=== PATIENT | male | born 1990 | race Caucasian/White ===

== ENCOUNTER 2017-08-01 07:14 | Inpatient (IN) | payer OTHER ==
[2017-08-01 07:32] VITALS: BMI 20.7
--- NOTE | 2017-08-01 07:51 | PDOC ---
Attending Attestation - Resident Resident Name: PerezTc baker - ED Attending Attestation I have performed the following: I have examined & evaluated the patient, The case was reviewed & discussed with the resident, I agree w/resident's findings & plan, Exceptions are as noted - HPI HPI: 08/01/17 08:11 26y M hx of HTN (recently diagnosed) sent to ED for evaluation of ARF. The patient got some lab work as an outpatient and was noted to have a Cr of 3.8, was referred to renal who told the pt to come to the ED. The pt notes approx 1 month of L flank pain. denies any fever/chills, sob, bates, leg swelling, hemoptysis. Nathanlhy notes that maternal grandmother has a 'shrinking kidney', no other family hx of kidney diesease. pt denies taking any other supplements/med beside his htn med. - Physicial Exam PE: 08/01/17 08:21 GENERAL: The patient is awake, alert, and fully oriented, Nontoxic - in no acute distress. HEAD: Normocephalic, atraumatic. EYES: extraocular movements intact, sclera anicteric, conjunctiva clear. ENT: Normal voice, Moist mucous membranes. NECK: Normal range of motion, supple LUNGS: Breath sounds equal, clear to auscultation bilaterally. No wheezes, no rhonchi, no rales. HEART: tachycardic, normal S1 and S2 without murmur, rub or gallop. ABDOMEN: Soft, nontender, normoactive bowel sounds. No guarding, no rebound. Mild Left CVA tenderness EXTREMITIES: Normal range of motion, no edema. NEUROLOGICAL: No facial assymetry, Normal speech, PSYCH: Normal mood, normal affect. SKIN: Warm, Dry, normal turgor - Medical Decision Making 08/01/17 08:21 Will repeat his blood wrok will obtain renal US EKG to screen for hyperkalemia wlil d/w dr. venegas regarding disposition 08/01/17 10:12 The patient's lab work was reviewed the patient's creatinine is 3.3 renal ultrasound reveals atrophic kidneys The case was discussed with Dr. Venegas recommends admitting the the patient for further workup and management of acute renal failure Heart Score/ECG Review - ECG Impressions Comment:: 08/01/17 08:28 Twelve-lead EKG was performed and reviewed by me. There is normal sinus rhythm with a rate of 106 The axis is normal. The intervals are normal. There is normal R wave progression There are no ST or T wave abnormalities. Impression: Sinus tachycardia
[2017-08-01] MEDS ORDERED: LACTATED RINGERS SOLUTION 1,000 ML IV STA (07:52)
--- NOTE | 2017-08-01 08:05 | PDOC ---
History of Present Illness - General Chief Complaint: Pain, Acute Stated Complaint: PCP REFERRAL Time Seen by Provider: 08/01/17 07:36 History Source: Patient Exam Limitations: No Limitations - History of Present Illness Initial Comments: 08/01/17 08:00 Patient is a 26M with history of HTN and syphilis here today complaining of left sided flank pain for one month. He describes the pain as a dull ache, but also describes an incident 2 weeks ago with sudden onset pain two weeks ago that resolved spontaneously. He endorses associated nausea and decreased PO intake. He's presenting to the ED today from silk finisher Dr Frances because his Cr was found to be 3.88. Patient denies fevers, chills, vomiting. Has family history of kidney stones and his mother is on dialysis. Denies pain with urination, endorses increased frequency. Patient states that he was recently diagnosed with syphilis for which he has been getting weekly injections, but he does not know what injections he was getting. Past History - Past Medical History Allergies/Adverse Reactions: Allergies Allergy/AdvReac Type Severity Reaction Status Date / Time No Known Allergies Allergy Verified 08/01/17 07:32 Home Medications: Ambulatory Orders NK [No Known Home Medication] 08/01/17 COPD: No Other medical history: syphyllis 2 weeks ago - Suicide/Smoking/Psychosocial Hx Smoking History: Never smoked Review of Systems - Review of Systems Comments:: 08/01/17 08:03 GENERAL/CONSTITUTIONAL: No fever or chills. No weakness. HEAD, EYES, EARS, NOSE AND THROAT: No change in vision. No sore throat. CARDIOVASCULAR: No chest pain or shortness of breath RESPIRATORY: No cough, wheezing, or hemoptysis. GASTROINTESTINAL: Positive for nausea. Negative for vomiting, diarrhea or constipation. GENITOURINARY: No dysuria. Positive for frequency. MUSCULOSKELETAL: No joint or muscle swelling or pain. No neck or back pain. SKIN: No rash NEUROLOGIC: No headache, vertigo, loss of consciousness, or change in strength/ sensation. HEMATOLOGIC/LYMPHATIC: No anemia, easy bleeding, or history of blood clots. ALLERGIC/IMMUNOLOGIC: No hives or skin allergy. *Physical Exam - Vital Signs Last Vital Signs Temp Pulse Resp BP Pulse Ox 99.1 F 116 H 20 163/92 99 08/01/17 07:29 08/01/17 07:29 08/01/17 07:29 08/01/17 07:29 08/01/17 07:29 - Physical Exam Comments: 08/01/17 08:04 GENERAL: Awake, alert, and fully oriented, in no acute distress HEAD: No signs of trauma, normocephalic, atraumatic EYES: PERRLA, EOMI, sclera anicteric, conjunctiva clear ENT: Auricles normal inspection, hearing grossly normal, nares patent, oropharynx clear without exudates. Moist mucosa NECK: Normal ROM, supple, no lymphadenopathy, JVD, or masses LUNGS: No distress, speaks full sentences, clear to auscultation bilaterally HEART: Regular rate and rhythm, normal S1 and S2, no murmurs, rubs or gallops, peripheral pulses normal and equal bilaterally. ABDOMEN: Soft, nontender, normoactive bowel sounds. No guarding, no rebound. No masses. Positive for left sided CVA tenderness. EXTREMITIES: Normal inspection, Normal range of motion, no edema. No clubbing or cyanosis. NEUROLOGICAL: Cranial nerves II through XII grossly intact. Normal speech, normal gait, no focal sensorimotor deficits SKIN: Warm, Dry, normal turgor, no rashes or lesions noted. ED Treatment Course - LABORATORY CBC & Chemistry Diagram: 08/01/17 08:13 08/01/17 08:13 Medical Decision Making - Medical Decision Making 08/01/17 08:05 Patient is 26M with history of HTN and syphilis here today with left sided flank pain and kidney failure. Vital signs notable for tachycardia. No edema noted in patient. Mild CVA tenderness. Differential diagnosis includes, but is not limited to: pyelonephritis, nephrolithiasis, nephritis, nephropathies. Syphilis increases concern for G/C, HIV. Will evaluate with cbc, cmp, lipase, ua , uc, hiv, gc amp, ultrasound. Will treat with lactated ringers. 08/01/17 08:27 EKG shows sinus tachycardia with rate of 106bpm. Normal axis. No st elevation/ depressions. Normal VA/QRS/QTc intervals. No significant t wave abnormalities. 08/01/17 09:27 Laboratory Tests 08/01/17 08/01/17 08/01/17 08:13 08:13 08:13 WBC 8.5 Hgb 13.0 Hct 38.2 Plt Count 227 BUN 43 H Creatinine 3.3 H Creat Clearance w eGFR 23.15 Lipase 484 H Urine Protein 2+ H Urine Nitrite Negative Ur Leukocyte Esterase Negative Urine WBC (Auto) 1 CBC normal. CMP shows decreased kidney function. Lipase mildly elevated, do no suspect pancreatitis given lack of abdominal pain. UA shows 2+ protein, no signs of infection. US pending. 08/01/17 10:06 US shows atrophic kidneys with echogenecity compatible with chronic or medical renal disease. Will admit to hospitalist. *DC/Admit/Observation/Transfer Diagnosis at time of Disposition: Renal failure - Discharge Dispostion Condition at time of disposition: Stable Admit: Yes - Referrals - Patient Instructions - Post Discharge Activity
[2017-08-01 08:37] LABS: BASO % 1.5 % (0-2.0); EOS % 1.5 % (0-4.5); HEMATOCRIT 38.2 % (35.4-49); LYMPH % 29.5 % (8-40); MCH 28.4 pg (25.7-33.7); MCHC 34.1 g/dl (32.0-35.9); MEAN CELL VOLUME 83.4 fl (80-96); MEAN PLT VOLUME 9.7 fl (7.5-11.1); MONO % 6.4 % (3.8-10.2); NEUT % 61.1 % (42.8-82.8); PLATELET COUNT 227 K/MM3 (134-434); RBC 4.58 M/mm3 (4.00-5.60); WHITE BLOOD COUNT 8.5 K/mm3 (4.0-10.0)
[2017-08-01 09:01] LABS: URINE APPEARANCE CLEAR; URINE BILIRUBIN NEGATIVE (<2.0 mg/dL); URINE BLOOD NEGATIVE (NEGATIVE); URINE COLOR COLORLESS; URINE GLUCOSE (UA) NEGATIVE (NEGATIVE); URINE KETONE NEGATIVE (NEGATIVE); URINE LEUK ESTERASE NEGATIVE (NEGATIVE); URINE NITRITE NEGATIVE (NEGATIVE); URINE UROBILINOGEN NEGATIVE mg/dL (0.2-1.0)
[2017-08-01 09:02] LABS: ALBUMIN 3.6 g/dl (3.4-5.0); ALK PHOS 163 U/L (45-117); ANION GAP 12 (8-16); BILIRUBIN,TOTAL 0.3 mg/dL (0.2-1.0); BLOOD UREA NITROGEN 43 mg/dL (7-18); CALCIUM 8.9 mg/dL (8.5-10.1); CHLORIDE 109 mmol/L (98-107); CO2 21 mmol/L (21-32); CREATININE 3.3 mg/dL (0.7-1.3); GLUCOSE,RANDOM 107 mg/dL (74-106); LIPASE 484 U/L (73-393); POTASSIUM 4.8 mmol/L (3.5-5.1); SGOT/AST 20 U/L (15-37); SGPT/ALT 23 U/L (12-78); SODIUM 142 mmol/L (136-145); TOT PROT 7.5 g/dl (6.4-8.2); URINE PROTEIN 2+ (NEGATIVE)
--- NOTE | 2017-08-01 10:16 | CONSULT ---
Consult - text type - Consultation Consultation Note: Renal Consult for EAGLE This is a 26 year old gentleman with recently diagnosed syphilis (getting IM PCN), recently diagnosed hypertension who was seen in our office yesterday for acute renal failure with Cr of 3.88 and referred to the ER for diagnostic work up and therapy. Pt has not had any medical follow up until earlier this month when his labs were checked and his Cr was 3.Repeat labs done earlier this week showed a Cr of 3.8. Pt intially reported that his mother is on dialysis but turns out that she only has kidney stones. He has a matheral uncle who from CKD (refused dialysis at age 60). Mathernal grandmother has CKD (unclear etiology). Pt denies any history of kidney stones. Denies using NSAIDs. No flank pain. Has been having mild N, anorexia, fatigue for the past several months. PMhx: as above Allergies: NKDA Family hx: NC Social hx: No T/A/D ROS: as per HPI Home Medications Medication Instructions Recorded NK [No Known Home Medication] 08/01/17 Vital Signs Temperature 98.0 F 08/01/17 08:56 Pulse Rate 97 H 08/01/17 08:56 Respiratory Rate 20 08/01/17 08:56 Blood Pressure 138/87 08/01/17 08:56 O2 Sat by Pulse Oximetry (%) 100 08/01/17 08:56 Intake & Output 07/29/17 07/30/17 07/31/17 08/01/17 23:59 23:59 23:59 23:59 Weight 56.699 kg NAD awake and alert RRR, no M/R CTA, no rales or wheeze Soft NT/ND No LE edmea, clubbing or cyanosis No focal neurological defects CBC, BMP 08/01/17 08:13 08/01/17 08:13 Current Medications Sodium Chloride (Normal Saline -) 1,000 mls @ 83 mls/hr IV ASDIR LORIE 26 year old gentleman with recently diagnosed syphilis (getting IM PCN), recently diagnosed hypertension who was seen in our office yesterday for acute renal failure with Cr of 3.88 and referred to the ER for diagnostic work up and therapy. #Acute vs. Subacute Renal Failure Differential diagnosis: Fabry disease vs PCKD vs. acute GN vs. vascular renal disease US showed smaller kidneys with one appearing atrophic (related to vascular disease leading to renal ischemia) Check UA, UPCR ,Urine Eios Check HIV, Hepatitsi profile, LUANA, ANCA, Ch50, RPR Start isotonic IVF for now Trend BUN/Cr no acute indication for NUT SHELLER avoid NATHAN/ARB, Nephrotoxins Dose all meds for CrCl ~20 will consider renal biopsy this admission #Hypertension Trend BP if Remains > 140/90 start CCB #Recently diagnosed Syphilis ? need for continued PCN therapy Thank you Will follow
[2017-08-01] MEDS: SODIUM CHLORIDE 1,000 ML IV SCH ×2 (10:17→17:51)
[2017-08-01 12:20] LABS: URINE APPEARANCE CLEAR; URINE BILIRUBIN NEGATIVE (<2.0 mg/dL); URINE BLOOD 1+ (NEGATIVE); URINE COLOR COLORLESS; URINE GLUCOSE (UA) NEGATIVE (NEGATIVE); URINE KETONE NEGATIVE (NEGATIVE); URINE LEUK ESTERASE NEGATIVE (NEGATIVE); URINE NITRITE NEGATIVE (NEGATIVE); URINE PROTEIN 2+ (NEGATIVE); URINE UROBILINOGEN NEGATIVE mg/dL (0.2-1.0)
--- NOTE | 2017-08-01 12:45 | HP ---
CHIEF COMPLAINT: abnormal lab PCP: Taryn Macedo NP HISTORY OF PRESENT ILLNESS: This is a 26 year old male with a recently diagnosed history of syphilis (last treatment of penicillin IM was today) and hypertension, also recently diagnosed , who was sent over by glove cutter for creatinine of 3.8. Denies fever, chills , n, v, dysuria, hematuria, frothy urine. Uncle of renal failure at a young age (denied dialysis). + Diabetes family history. No other known family history. Denies sweating, labile blood pressure, chest pain palpitations, sob, leg swelling. Current complaints are left sided abdominal/flank/rib pain, for the past week. Pain is sharp, non radiating. No change with movement. Denies NSAID use. ER course was notable for: creatinine 3.3; US atrophic kidneys Recent Travel: no PAST MEDICAL HISTORY: syphillis PAST SURGICAL HISTORY: Social History: Smoking:no Alcohol:social Drugs: no Family History: ckd Allergies No Known Allergies Allergy (Verified 08/01/17 07:32) HOME MEDICATIONS: Home Medications Medication Instructions Recorded NK [No Known Home Medication] 08/01/17 REVIEW OF SYSTEMS as above PHYSICAL EXAMINATION Vital Signs - 24 hr 08/01/17 08/01/17 08/01/17 07:29 08:56 11:15 Temperature 99.1 F 98.0 F 98.6 F Pulse Rate 116 H Pulse Rate [ 97 H 106 H Left Apical] Respiratory 20 20 20 Rate Blood Pressure 163/92 Blood Pressure 138/87 128/70 [Left Arm] O2 Sat by Pulse 99 100 98 Oximetry (%) GENERAL: Awake, alert, and fully oriented, in no acute distress. HEAD: Normal with no signs of trauma. EYES: Pupils equal, round and reactive to light, extraocular movements intact, sclera anicteric, conjunctiva clear. No lid lag. EARS, NOSE, THROAT: Ears normal, nares patent, oropharynx clear without exudates. Moist mucous membranes. NECK: Normal range of motion, supple without lymphadenopathy, JVD, or masses. LUNGS: Breath sounds equal, clear to auscultation bilaterally. No wheezes, and no crackles. No accessory muscle use. HEART: Regular rate and rhythm, normal S1 and S2 without murmur, rub or gallop. ABDOMEN: Soft, nontender, not distended, normoactive bowel sounds, very tender LUQ; left side pain around ribs; no swelling or bruising. MUSCULOSKELETAL: Normal range of motion at all joints. No bony deformities or tenderness. No CVA tenderness. UPPER EXTREMITIES: 2+ pulses, warm, well-perfused. No cyanosis. No clubbing. No peripheral edema. LOWER EXTREMITIES: 2+ pulses, warm, well-perfused. No calf tenderness. No peripheral edema. motor 5/5 throughout bi/tri; flex/ext wrist/hip/knee/ankle; sensation intact throughout; NEUROLOGICAL: Cranial nerves II-XII intact. Normal speech. Normal gait. PSYCHIATRIC: anxious Laboratory Results - last 24 hr 08/01/17 08/01/17 08/01/17 08:13 08:13 08:13 WBC 8.5 RBC 4.58 Hgb 13.0 Hct 38.2 MCV 83.4 MCH 28.4 MCHC 34.1 RDW 13.0 Plt Count 227 MPV 9.7 Neutrophils % 61.1 Lymphocytes % 29.5 Monocytes % 6.4 Eosinophils % 1.5 Basophils % 1.5 Sodium 142 Potassium 4.8 Chloride 109 H Carbon Dioxide 21 Anion Gap 12 BUN 43 H Creatinine 3.3 H Creat Clearance w eGFR 23.15 Random Glucose 107 H Calcium 8.9 Total Bilirubin 0.3 AST 20 ALT 23 Alkaline Phosphatase 163 H Total Protein 7.5 Albumin 3.6 Lipase 484 H Urine Color Colorless Urine Appearance Clear Urine pH 5.0 Ur Specific [place] 1.009 Urine Protein 2+ H Urine Glucose (UA) Negative Urine Ketones Negative Urine Blood Negative Urine Nitrite Negative Urine Bilirubin Negative Urine Urobilinogen Negative Ur Leukocyte Esterase Negative Urine WBC (Auto) 1 Urine RBC (Auto) None HIV 1&2 Antibody Screen HIV P24 Antigen 08/01/17 08/01/17 08:13 12:06 WBC RBC Hgb Hct MCV MCH MCHC RDW Plt Count MPV Neutrophils % Lymphocytes % Monocytes % Eosinophils % Basophils % Sodium Potassium Chloride Carbon Dioxide Anion Gap BUN Creatinine Creat Clearance w eGFR Random Glucose Calcium Total Bilirubin AST ALT Alkaline Phosphatase Total Protein Albumin Lipase Urine Color Colorless Urine Appearance Clear Urine pH 6.0 Ur Specific [place] 1.008 Urine Protein 2+ H Urine Glucose (UA) Negative Urine Ketones Negative Urine Blood 1+ H Urine Nitrite Negative Urine Bilirubin Negative Urine Urobilinogen Negative Ur Leukocyte Esterase Negative Urine WBC (Auto) <1 Urine RBC (Auto) None HIV 1&2 Antibody Screen Negative HIV P24 Antigen Negative ASSESSMENT/PLAN: This is a 26 yr old mal ewith history of syphillis, htn, acute renal failure, presents for evaluation of acute condition. R/o renal causes, nephrotic symdromes; medication reactions, recent hx of syphilis, other immune diseases. #acute renal failure?;although cronic looking kidneys on US -very broad differential for now -urine lytes to calc feNA, eoinophills -spine urine for sediment -trend BUN Cr -serology ; including hepatitis A, B, C, HIV, -immunology: LUANA, C-ANCA PANCA, complement -aviod nephrotoxic agent -all meds dose for creatinine clearance of 20 -will most likely need renal biopsy -appreciate renal #hypertension: -stable for now; hold home meds to to renal failure -recent diagnosis: need to r/o Renal art stenosis; poss pheo? #Syphillis: -just finished 3rd dose of IM penicillin today; as ; per patient -f/u STD studies -has been reports of syphillis causing nephritis IVF VTE proh; scd/ambulate Case discussed with Dr. Ron Dickey [id number] Visit type - Emergency Visit Emergency Visit: Yes ED Registration Date: 08/01/17 Care time: The patient presented to the Emergency Department on the above date and was hospitalized for further evaluation of their emergent condition. - New Patient This patient is new to me today: Yes Date on this admission: 08/02/17 - Critical Care Critical Care patient: No Hospitalist Screening - Colonoscopy Questionnaire Colonoscopy Questionnaire: Colonoscopy Questionnaire - Patient: 50 - 75 years old and never had a screening colonoscopy: No History of colon or rectal polyps, or CA: Unknown History of IBD, Crohn's disease or UC: Unknown History of abdominal radiation therapy as a child: Unknown - Relative: 1 with colon or rectal CA, or polyps at age 60 or younger: Unknown Colon or rectal CA diagnosed at age 45 or younger: Unknown Multiple relatives with colon or rectal CA: Unknown - Outcome: Screening Result: Negative Screen
[2017-08-01 12:48] LABS: COCAINE, UR NEGATIVE ng/ml (CUTOFF=300); METHADONE, UR NEGATIVE ng/ml (CUTOFF=300); OPIATES, URI NEGATIVE ng/ml (CUTOFF=300); PHENCYCLIDINE,URINE NEGATIVE ng/ml (CUTOFF=25); URINE AMPHETAMINES NEGATIVE ng/ml (CUTOFF=500); URINE BARBITURATES NEGATIVE ng/ml (CUTOFF=200); URINE BENZODIAZEPINES NEGATIVE ng/ml (CUTOFF=200)
[2017-08-01 13:00] LABS: URINE CREATININE 36.7 mg/dL (20-370)
--- NOTE | 2017-08-01 19:52 | PN ---
Teaching Attending Note Name of Resident: Grecia Dickey ATTENDING PHYSICIAN STATEMENT I saw and evaluated the patient. I reviewed the resident's note and discussed the case with the resident. I agree with the resident's findings and plan as documented. SUBJECTIVE: CC: renal failure , referred by Dr. Frances HPI: 26 y/o male who was recently diagnosed with HTN , and being treated for syphilis , who was referred by Dr. Frances for renal failure. He was diagnosed by his PCP , Taryn Macedo NP ) with HTN. he was started on Losartan/HCTZ which he was compliant with. 1 month ago and because of generalized rash , he went to Dr. Isreal Lowry ( [phone]) at [address] [place] [address], and he was diagnoesed with syphilis. He was started on PCN IM weekly ( last dose today). he reports last sexual encounter with a female partner 4 yrs ago, no h/o STDS ( personal or partner ). no neurological complaints. On July 25, he did not feel well , so he saw Dr. Lowry who did blood work and diagnosed him with renal failure ( Cr 3.8). he also changed osartan /HCTZ to Losartan 50 mg and referred him to Dr. Frances. dr. Frances referred him to ER to be worked up. He denies any fever , chills, hematuria, but has L flank pain, x 3 weeks . denies any trauma. denies recent viral illness. no NSAIDs use, denies drug use. Not sexually active x 4 yrs . OBJECTIVE: NAD HEENT: NC, AT, MMM, no LAP , nl oropharynx, no mouth ulcers. No jVD , no facial droop, EOMI . round equal pupils CV; RRR. no MRG . symmetric 2+ RP, DP . could bot feel femoral artery pulses Lungs: CTAB Abd: soft, ND , NL BS, NT. TTP over L lower ribs. no hepatosplenomegaly. No bruits over renal arteries. Ext; no edmea or erythema. Skin no rash . : Nl hair distribution, nl no ulcers on penis. no rash in inguinal area. ASSESSMENT AND PLAN: 26 y/o male who was recently diagnosed with HTN , and being treated for syphilis , who was referred by Dr. Frances for renal failure. 1- Renal failure , not clear acute or chronic. possible causes is chronic HTN. Interstitial nephritis (on PCN). Syphilis ( case reports in literature). medications ( on HCTZ/Losartan). Of course can't r/ o other causes like IgA nephropathy given hyper tension, but no h/o recent viral illness. no h/o heroin or cocaine abuse. can't r/o vasculitis . - Need to determine Nephritic vs Nephrotic . follow protein/Cr . No blood in urine so unlikely niphritic - will ask for Urine sediment - complement pending - check FeUrea as on HCTZ - follow Hepatitis panel, add Hep B surface Abs - renal US reviewed. - Follow ANCA , and other serology - HIV neg . - give gentle hydration , if it helps will cont , if no change or fluid overload , then will stop - check A1c - appreciate renal help 2- HTN: recently diagnosed in 03/27. placed on Losartan/HCTZ then switched to Losartan alone as above. ? secondary HTN given his young age. no bruits over renal arteries. symmetric RP , but could not feel femoral pulse. - hold Losartan - check renal artery doppler to r/o b/l renal artery hyperplagia. - start norvasc 5 mg daily pending w/u for renal failure - check renin / Aldorsteron 3- Recent diagnosis of syphilis. received 3rd dose of IM PCN today. saw picture of his rash, could go with secondary syphilis( generalized macuolapular rash on trunk, face, extremitis) , but his last sexual encounter was 4 yrs ago( questioned privately) has no neuro sx. probably received the right treatment . will obtain more records if possible. - HIV neg - G/C pending - F/u with ID HLOC
[2017-08-01] MEDS ORDERED: amLODIPine BESYLATE 5 MG TABLET (FP) PO SCH (21:45)
[2017-08-02 08:26] LABS: BASO % 1.1 % (0-2.0); EOS % 1.9 % (0-4.5); HEMATOCRIT 34.9 % (35.4-49); LYMPH % 33.7 % (8-40); MCH 28.8 pg (25.7-33.7); MCHC 34.5 g/dl (32.0-35.9); MEAN CELL VOLUME 83.5 fl (80-96); MEAN PLT VOLUME 10.1 fl (7.5-11.1); NEUT % 56.3 % (42.8-82.8); PLATELET COUNT 199 K/MM3 (134-434); RBC 4.17 M/mm3 (4.00-5.60); RDW 12.9 % (11.9-15.9); WHITE BLOOD COUNT 7.3 K/mm3 (4.0-10.0)
[2017-08-02 08:43] LABS: INR 0.99 (0.82-1.09); PROTHROMBIN TIME (PATIENT) 11.2 SEC (9.98-11.88)
[2017-08-02 08:46] LABS: ACTIVATED PTT 30.1 SECONDS (26.9-34.4)
--- NOTE | 2017-08-02 09:08 | PN ---
Progress Note (short form) - Note Progress Note: Renal follow up for EAGLE Pt seen and examined at the bedside awake and alert no acute complaints denies any CP, SOB, abd pain, N/V/D, rash, dysuria Vital Signs Temperature 98.4 F 08/02/17 06:00 Pulse Rate 91 H 08/02/17 06:00 Respiratory Rate 91 H 08/02/17 06:00 Blood Pressure 144/84 08/02/17 06:00 O2 Sat by Pulse Oximetry (%) 98 08/01/17 21:00 Intake & Output 07/30/17 07/31/17 08/01/17 08/02/17 23:59 23:59 23:59 23:59 Intake Total 1581 150 Balance 1581 150 Weight 56.699 kg NAD awake and alert RRR, no M/R CTA, no rales or wheeze Soft NT/ND No LE edmea, clubbing or cyanosis CBC, BMP 08/02/17 06:30 Laboratory Tests 08/01/17 08/01/17 08/01/17 06:00 08:13 10:20 U Random Total Protein Ur Random Sodium Ur Random Urea Nitrogn Urine Creatinine LUANA Screen c-ANCA Proteinase 3 (PR3) p-ANCA Atypical p-ANCA Myeloperoxidase Ab Tot Complement (CH50) RPR Titer Pending C. trachomatis (POPEYE) Hepatitis A IgM Ab Pending Hep Bs Antigen Pending Hep Bs Antibody, Quant Hep B Core IgM Ab Pending Hep C Ab Diagnostic Pending Hepatitis C Antibody Pending HIV 1&2 Antibody Screen Negative HIV P24 Antigen Negative N. gonorrhoeae (POPEYE) 08/01/17 08/01/17 08/01/17 10:20 12:00 12:06 U Random Total Protein 135 H Ur Random Sodium 109 Ur Random Urea Nitrogn 283 Urine Creatinine 36.7 LUANA Screen Pending c-ANCA Pending Proteinase 3 (PR3) Pending p-ANCA Pending Atypical p-ANCA Pending Myeloperoxidase Ab Pending Tot Complement (CH50) Pending RPR Titer C. trachomatis (POPEYE) Pending Hepatitis A IgM Ab Hep Bs Antigen Hep Bs Antibody, Quant Hep B Core IgM Ab Hep C Ab Diagnostic Hepatitis C Antibody HIV 1&2 Antibody Screen HIV P24 Antigen N. gonorrhoeae (POPEYE) Pending 08/01/17 13:00 U Random Total Protein Ur Random Sodium Ur Random Urea Nitrogn Urine Creatinine LUANA Screen c-ANCA Proteinase 3 (PR3) p-ANCA Atypical p-ANCA Myeloperoxidase Ab Tot Complement (CH50) RPR Titer C. trachomatis (POPEYE) Hepatitis A IgM Ab Hep Bs Antigen Hep Bs Antibody, Quant 9.8 L Hep B Core IgM Ab Hep C Ab Diagnostic Hepatitis C Antibody HIV 1&2 Antibody Screen HIV P24 Antigen N. gonorrhoeae (POPEYE) Current Medications Amlodipine Besylate (Norvasc -) 5 mg PO DAILY LORIE Sodium Chloride (Normal Saline -) 1,000 mls @ 83 mls/hr IV ASDIR LORIE Last Admin: 08/01/17 17:51 Dose: 83 mls/hr 26 year old gentleman with recently diagnosed syphilis (getting IM PCN), recently diagnosed hypertension who was seen in our office yesterday for acute renal failure with Cr of 3.88 and referred to the ER for diagnostic work up and therapy. #Acute vs. Subacute Renal Failure with nephrotic range proteinuria #Asymmetric kidneys r/o NOBLE #Hypertension #Recently diagnosed Syphilis Majority of serologic work up remains pending clinically pt is stable and non-oliguric, todays BMP pending will discuss with radiology tomorrow if renal biopsy would be possible given pt essentially has one functioning kidney agree with Abd Doppler to access renal profusion will also check renal vein Doppler to r/o thrombosis given nephrotic range proteinuria continue IVF for additional 24 hours continue CCB for bp control will follow Jd Frances DO
[2017-08-02] MEDS: amLODIPine BESYLATE 5 MG TABLET (FP) PO SCH (09:59)
[2017-08-02 10:14] LABS: RPR REACTIVE 1:2 (NONREACTIVE)
[2017-08-02] MEDS: SODIUM CHLORIDE 1,000 ML IV SCH ×2 (11:00→18:56)
[2017-08-02 11:01] LABS: CHLORIDE 110 mmol/L (98-107); POTASSIUM 4.5 mmol/L (3.5-5.1); SODIUM 141 mmol/L (136-145)
[2017-08-02 11:10] LABS: ALK PHOS 121 U/L (45-117); ANION GAP 10 (8-16); BILIRUBIN,TOTAL 0.4 mg/dL (0.2-1.0); BLOOD UREA NITROGEN 32 mg/dL (7-18); CALCIUM 8.6 mg/dL (8.5-10.1); CO2 21 mmol/L (21-32); CREATININE 3.1 mg/dL (0.7-1.3); GLUCOSE,RANDOM 82 mg/dL (74-106); MAGNESIUM 1.5 mg/dL (1.8-2.4); PHOSPHOROUS 3.8 mg/dL (2.5-4.9); SGOT/AST 16 U/L (15-37); SGPT/ALT 15 U/L (12-78); TOT PROT 6.1 g/dl (6.4-8.2)
[2017-08-02 15:08] LABS: TREPONEMA ANTIBODY REACTIVE (NONREACTIVE)
--- NOTE | 2017-08-02 18:10 | PN ---
Progress Note (short form) - Note Progress Note: Subjective: no fever or chills, no SOB , no cough . cont to make urine Objective: Vital Signs: Last Vital Signs Temp Pulse Resp BP Pulse Ox 99 F 103 H 20 147/82 98 08/02/17 17:25 08/02/17 17:25 08/02/17 17:25 08/02/17 17:25 08/02/17 09:00 Laboratory Results - last 24 hr 08/01/17 08/01/17 08/02/17 06:00 13:00 06:30 WBC RBC Hgb Hct MCV MCH MCHC RDW Plt Count MPV Neutrophils % Lymphocytes % Monocytes % Eosinophils % Basophils % PT with INR INR PTT (Actin FS) Sodium 141 Potassium 4.5 Chloride 110 H Carbon Dioxide 21 Anion Gap 10 BUN 32 H D Creatinine 3.1 H Creat Clearance w eGFR 24.88 Random Glucose 82 D Hemoglobin A1c % Calcium 8.6 Phosphorus 3.8 Magnesium 1.5 L Total Bilirubin 0.4 D AST 16 ALT 15 D Alkaline Phosphatase 121 H D Total Protein 6.1 L Albumin 3.0 L RPR Titer Reactive 1:2 H T.pallidum Ab (MHA) Reactive Hep Bs Antibody, Quant 9.8 L 08/02/17 08/02/17 08/02/17 06:30 06:30 06:30 WBC 7.3 RBC 4.17 Hgb 12.0 Hct 34.9 L MCV 83.5 MCH 28.8 MCHC 34.5 RDW 12.9 Plt Count 199 MPV 10.1 Neutrophils % 56.3 Lymphocytes % 33.7 Monocytes % 7.0 Eosinophils % 1.9 Basophils % 1.1 PT with INR 11.20 INR 0.99 PTT (Actin FS) 30.1 Sodium Potassium Chloride Carbon Dioxide Anion Gap BUN Creatinine Creat Clearance w eGFR Random Glucose Hemoglobin A1c % 4.9 Calcium Phosphorus Magnesium Total Bilirubin AST ALT Alkaline Phosphatase Total Protein Albumin RPR Titer T.pallidum Ab (MHA) Hep Bs Antibody, Quant NAD HEENT: NC, AT, MMM, no JVD CV; RRR. no MRG . Lungs: CTAB Abd: soft, ND , NL BS, NT. . Ext; no edmea or erythema. Skin no rash . ASSESSMENT AND PLAN: 26 y/o male who was recently diagnosed with HTN , and being treated for syphilis , who was referred by Dr. Frances for renal failure. 1- Renal failure, likely chronic in nature FeNA > 1% indicating intrinsic renal disease . P/Cr = 3.7 indicating nephrotic range protein urea - Complement , hepatitis serology, ANCA pending - cont iVF . - A1c noted - follow renal vein doppler - d/w Dr. Frances. might get a biopsy 2- HTN: recently diagnosed in 03/27. placed on Losartan/HCTZ then switched to Losartan alone as above. - cont to hold losartan - cont norvasc - follow renal artery doppler - follow renin / Aldorsteron 3- Recent diagnosis of syphilis( secondary ) . received 3rd dose of IM PCN . - HIV neg - G/C pending - F/u with ID as out pt in [facility] or in the [facility] clinic will provide with contact HLOC Visit type - Emergency Visit Emergency Visit: Yes ED Registration Date: 08/01/17 Care time: The patient presented to the Emergency Department on the above date and was hospitalized for further evaluation of their emergent condition. - New Patient This patient is new to me today: No - Critical Care Critical Care patient: No
--- NOTE | 2017-08-02 21:42 | EKG ---
Test Reason : Blood Pressure : / mmHG Vent. Rate : 106 BPM Atrial Rate : 106 BPM P-R Int : 132 ms QRS Dur : 076 ms QT Int : 310 ms P-R-T Axes : 074 002 042 degrees QTc Int : 411 ms SINUS TACHYCARDIA OTHERWISE NORMAL ECG NO PREVIOUS ECGS AVAILABLE Confirmed by DEBBIE MILLER MD ([id number]) on 08/02/2017 9:42:21 PM Referred By: Confirmed By:DEBBIE MILLER MD
[2017-08-03 08:50] LABS: ANION GAP 10 (8-16); BLOOD UREA NITROGEN 33 mg/dL (7-18); CALCIUM 8.7 mg/dL (8.5-10.1); CHLORIDE 109 mmol/L (98-107); CO2 23 mmol/L (21-32); CREATININE 3.1 mg/dL (0.7-1.3); GLUCOSE,RANDOM 82 mg/dL (74-106); POTASSIUM 3.9 mmol/L (3.5-5.1); SODIUM 142 mmol/L (136-145)
[2017-08-03] MEDS: amLODIPine BESYLATE 5 MG TABLET (FP) PO SCH (10:17)
--- NOTE | 2017-08-03 11:18 | PN ---
Progress Note (short form) - Note Progress Note: Renal follow up for EAGLE Pt seen and examined at the bedside for renal biopsy today pt feel nervous but no sob, chest pain, abd pain, N/V/D making urine Vital Signs Temperature 98.3 F 08/03/17 06:19 Pulse Rate 90 08/03/17 06:19 Respiratory Rate 20 08/03/17 06:19 Blood Pressure 125/77 08/03/17 06:19 O2 Sat by Pulse Oximetry (%) 99 08/02/17 21:00 Intake & Output 07/31/17 08/01/17 08/02/17 08/03/17 23:59 23:59 23:59 23:59 Intake Total 1581 1279 498 Balance 1581 1279 498 Weight 56.699 kg NAD awake and alert RRR, no M/R CTA, no rales or wheeze Soft NT/ND no LE edema CBC, BMP 08/02/17 06:30 08/03/17 07:00 Current Medications Amlodipine Besylate (Norvasc -) 5 mg PO DAILY LORIE Last Admin: 08/03/17 10:17 Dose: 5 mg 26 year old gentleman with recently diagnosed syphilis (getting IM PCN), recently diagnosed hypertension who was seen in our office yesterday for acute renal failure with Cr of 3.88 and referred to the ER for diagnostic work up and therapy. #Acute vs. 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
[2017-08-03 14:13] LABS: HEP.C VIRUS AB <0.1 s/co ratio (0.0-0.9)
--- NOTE | 2017-08-03 15:41 | PN ---
Physical Exam: SUBJECTIVE: Patient seen and examined No acute events overnight. Patient denies any symptoms today. Patient states he does make urine. Denies fever, chills, chest pain, sob, abdominal pain OBJECTIVE: Vital Signs Period Temp Pulse Resp BP Sys/Stover Pulse Ox Last 24 Hr 98 F-99 F 90-140 14-25 125-154/75-100 99-100 GENERAL: The patient is awake, alert, and fully oriented, in no acute distress. HEAD: Normal with no signs of trauma. EYES: Extraocular movements intact, sclera anicteric, conjunctiva clear. No ptosis. ENT: Oropharynx clear without exudates, moist mucous membranes. NECK: Trachea midline, full range of motion, supple. LUNGS: Breath sounds equal, clear to auscultation bilaterally, no wheezes, no crackles, no accessory muscle use. HEART: Regular rate and rhythm, S1, S2 without murmur, rub or gallop. ABDOMEN: Soft, nontender, nondistended, normoactive bowel sounds, no guarding, no rebound, no hepatosplenomegaly, no masses. EXTREMITIES: 2+ pulses, warm, well-perfused, no edema. NEUROLOGICAL: Cranial nerves II through XII grossly intact. Normal speech, gait not observed. PSYCH: Normal mood, normal affect. SKIN: Warm, dry, normal turgor, no rashes or lesions noted Laboratory Results - last 24 hr 08/01/17 08/03/17 10:20 07:00 Sodium 142 Potassium 3.9 Chloride 109 H Carbon Dioxide 23 Anion Gap 10 BUN 33 H Creatinine 3.1 H Random Glucose 82 Calcium 8.7 Hepatitis A IgM Ab Negative Hep Bs Antigen Negative Hep B Core IgM Ab Positive H Hepatitis C Antibody <0.1 Active Medications Generic Name Dose Route Start Last Admin Trade Name Freq PRN Reason Stop Dose Admin Amlodipine Besylate 5 mg 08/02/17 04:53 08/03/17 10:17 Norvasc - PO 5 mg DAILY LORIE Administration ASSESSMENT/PLAN: 26 year old M with recent diagnosis of HTN and syphilis presented in acute renal failure #Renal Failure, FeNa>1% likely chronic in nature given atrophic kidneys and stable cr -labs pending -A1c 4.9 -Renal biopsy done today -Renal artery/vein doppler completed -renal on board, Dr Frances #HTN -Continue norvasc 5 mg po daily -Renin/aldosterone level pending #Syphilis, secondary -3 doses of IM Pen given -HIV negative -Will f/u outpt with ID #FEN/GI -no ivf -wnl -renal diet #ppx -scd #dispo: pending renal biopsy results Visit type - Emergency Visit Emergency Visit: Yes ED Registration Date: 08/01/17 Care time: The patient presented to the Emergency Department on the above date and was hospitalized for further evaluation of their emergent condition. - New Patient This patient is new to me today: Yes Date on this admission: 08/03/17 - Critical Care Critical Care patient: No
--- NOTE | 2017-08-03 19:27 | PN ---
Teaching Attending Note Name of Resident: Mulugeta Zaragoza ATTENDING PHYSICIAN STATEMENT I saw and evaluated the patient. I reviewed the resident's note and discussed the case with the resident. I agree with the resident's findings and plan as documented. SUBJECTIVE: no fever or chills, no pain after renal Bx OBJECTIVE: HEENT: NC, AT, MMM, no JVD CV; RRR. no MRG . Lungs: CTAB Abd: soft, ND , NL BS, NT. . renal bx site with a small dresing . Ext; no edmea or erythema. Skin no rash . ASSESSMENT AND PLAN: 26 y/o male who was recently diagnosed with HTN , and being treated for syphilis , who was referred by Dr. Frances for renal failure. 1- Renal failure, likely chronic in nature s/p renal bx today off IVF . stabl ecr - Complement , hepatitis serology, ANCA pending - follow renal vein and artery doppler 2- HTN: - cont norvasc - follow renin / Aldorsteron 3- Recent diagnosis of syphilis (secondary ) . received 3rd dose of IM PCN . - HIV neg - G/C pending - F/u with ID as out pt in [facility] or in the [facility] clinic will provide with contact OC
[2017-08-04 00:07] LABS: COMPLEMENT TOTAL(CH50) 59 U/mL (42-60)
[2017-08-04 08:50] LABS: EOS % 1.1 % (0-4.5); HEMATOCRIT 38.6 % (35.4-49); HEMOGLOBIN 13.1 GM/dL (11.7-16.9); LYMPH % 30.3 % (8-40); MCH 28.3 pg (25.7-33.7); MCHC 33.9 g/dl (32.0-35.9); MEAN CELL VOLUME 83.6 fl (80-96); MONO % 5.8 % (3.8-10.2); NEUT % 61.8 % (42.8-82.8); PLATELET COUNT 206 K/MM3 (134-434); RBC 4.62 M/mm3 (4.00-5.60); RDW 12.7 % (11.9-15.9); WHITE BLOOD COUNT 8.3 K/mm3 (4.0-10.0)
[2017-08-04 08:58] LABS: ANION GAP 12 (8-16); BLOOD UREA NITROGEN 35 mg/dL (7-18); CALCIUM 9.1 mg/dL (8.5-10.1); CHLORIDE 107 mmol/L (98-107); CO2 23 mmol/L (21-32); GLUCOSE,RANDOM 76 mg/dL (74-106); MAGNESIUM 1.9 mg/dL (1.8-2.4); POTASSIUM 3.9 mmol/L (3.5-5.1); SODIUM 142 mmol/L (136-145)
[2017-08-04 08:59] LABS: CREATININE 3.3 mg/dL (0.7-1.3); PHOSPHOROUS 3.9 mg/dL (2.5-4.9)
[2017-08-04] MEDS: amLODIPine BESYLATE 5 MG TABLET (FP) PO SCH (09:43)
--- NOTE | 2017-08-04 13:23 | PN ---
Teaching Attending Note Name of Resident: Mulugeta Zaragoza ATTENDING PHYSICIAN STATEMENT I saw and evaluated the patient. I reviewed the resident's note and discussed the case with the resident. I agree with the resident's findings and plan as documented. SUBJECTIVE: minimal pain in site of the biopsy. no fever or chills. has no abd pain. no N/V OBJECTIVE: HEENT: NC, AT, MMM, no JVD CV; RRR. no MRG . Lungs: CTAB Abd: soft, ND , NL BS, NT. renal bx site with a small dressing . Ext; no edmea or erythema. Skin no rash . ASSESSMENT AND PLAN: 26 y/o male who was recently diagnosed with HTN , and being treated for syphilis , who was referred by Dr. Frances for renal failure. 1- Renal failure with nephrotic , likely chronic in nature. s/p renal bx yesterday stabl ecr - Complement NL . ANCA pending - renal artery and vein with no stenosis or thrombosis - need follow up after renal bx results 2- HTN: - Will ask dr. Frances if it is OK to switch back to home losartan . - follow renin / Aldorsteron 3- Recent diagnosis of secondary syphilis (secondary).per him he received the last dose of PCN on 08/01. But mom was called today by an out pt RN to remind her he was due for a dose. will try to reach out to the Rn and MP to clerify details .if due to will administer 4- Acute hepatitis B in Window period. - No fever , or Abd pain. Nl LFTS ( except Alk phos ) . - treatment as out pt . usually treatment is delayed 4-6 months due to likelihood of clearance dispo : possible dc today if OK by renal and if other issues are figured out ASSESSMENT AND PLAN:
--- NOTE | 2017-08-04 14:19 | PN ---
Progress Note (short form) - Note Progress Note: Renal follow up for EAGLE Pt seen and examined at the bedside awake and alert no acute complaints Vital Signs Temperature 98.1 F 08/04/17 08:15 Pulse Rate 110 H 08/04/17 08:15 Respiratory Rate 18 08/04/17 08:15 Blood Pressure 135/72 08/04/17 08:15 O2 Sat by Pulse Oximetry (%) 97 08/03/17 21:00 Intake & Output 08/01/17 08/02/17 08/03/17 08/04/17 23:59 23:59 23:59 23:59 Intake Total 1581 1279 498 Output Total 350 Balance 1581 1279 148 Weight 56.699 kg NAD awake and alert RRR, no M/R CTA, no rales or wheeze Soft NT/ND no LE edema CBC, BMP 08/04/17 07:00 08/04/17 07:00 Current Medications Amlodipine Besylate (Norvasc -) 5 mg PO DAILY LORIE Last Admin: 08/04/17 09:43 Dose: 5 mg 26 year old gentleman with recently diagnosed syphilis (getting IM PCN), recently diagnosed hypertension who was seen in our office yesterday for acute renal failure with Cr of 3.88 and referred to the ER for diagnostic work up and therapy. #Acute vs. Subacute Renal Failure with nephrotic range proteinuria #Asymmetric kidneys r/o NOBLE #Hypertension #Recently diagnosed Syphilis s/p biopsy, will have preliminary read tomorrow Serologies noted, LUANA negative, Heaptitis Core Ab + continue amlodipine for BP control no acute indication for [employer]IC work up for Hepatitis as per primary will need to complete course of syphilis tx Jd Frances DO
--- NOTE | 2017-08-04 15:59 | PN ---
Physical Exam: SUBJECTIVE: Patient seen and examined No acute events overnight. Patient is asymptomatic today and states he continues to make urine. Denies fever, chills, chest pain, sob, abdominal pain OBJECTIVE: Vital Signs Period Temp Pulse Resp BP Sys/Stover Pulse Ox Last 24 Hr 98.0 F-98.5 F 104-110 18-18 122-143/68-84 97 GENERAL: The patient is awake, alert, and fully oriented, in no acute distress. HEAD: Normal with no signs of trauma. EYES: Extraocular movements intact, sclera anicteric, conjunctiva clear. No ptosis. ENT: Oropharynx clear without exudates, moist mucous membranes. NECK: Trachea midline, full range of motion, supple. LUNGS: Breath sounds equal, clear to auscultation bilaterally, no wheezes, no crackles, no accessory muscle use. HEART: Regular rate and rhythm, S1, S2 without murmur, rub or gallop. ABDOMEN: Soft, nontender, nondistended, normoactive bowel sounds, no guarding, no rebound, no hepatosplenomegaly, no masses. +right flank tenderness with gauze over bx site EXTREMITIES: 2+ pulses, warm, well-perfused, no edema. NEUROLOGICAL: Cranial nerves II through XII grossly intact. Normal speech, gait not observed. PSYCH: Normal mood, normal affect. SKIN: Warm, dry, normal turgor, no rashes or lesions noted Laboratory Results - last 24 hr 08/01/17 08/01/17 08/04/17 10:20 12:00 07:00 WBC 8.3 RBC 4.62 Hgb 13.1 Hct 38.6 MCV 83.6 MCH 28.3 MCHC 33.9 RDW 12.7 Plt Count 206 MPV 10.0 Neutrophils % 61.8 Lymphocytes % 30.3 Monocytes % 5.8 Eosinophils % 1.1 Basophils % 1.0 Sodium Potassium Chloride Carbon Dioxide Anion Gap BUN Creatinine Random Glucose Calcium Phosphorus Magnesium LUANA Screen Negative Tot Complement (CH50) 59 C. trachomatis (POPEYE) Negative N. gonorrhoeae (POPEYE) Negative 08/04/17 07:00 WBC RBC Hgb Hct MCV MCH MCHC RDW Plt Count MPV Neutrophils % Lymphocytes % Monocytes % Eosinophils % Basophils % Sodium 142 Potassium 3.9 Chloride 107 Carbon Dioxide 23 Anion Gap 12 BUN 35 H Creatinine 3.3 H Random Glucose 76 Calcium 9.1 Phosphorus 3.9 Magnesium 1.9 D LUANA Screen Tot Complement (CH50) C. trachomatis (POPEYE) N. gonorrhoeae (POPEYE) Active Medications Generic Name Dose Route Start Last Admin Trade Name Patricia PRN Reason Stop Dose Admin Amlodipine Besylate 5 mg 08/02/17 04:53 08/04/17 09:43 Norvasc - PO 5 mg DAILY LORIE Administration ASSESSMENT/PLAN: 26 year old M with recent diagnosis of HTN and syphilis presented in acute renal failure #Renal Failure, FeNa>1% likely chronic in nature given atrophic kidneys and stable cr -A1c 4.9 -Renal biopsy pending -Renal artery/vein doppler negative -Cr stable -renal on board, Dr Frances -Anca pending #HTN -Continue norvasc 5 mg po daily -Renin/aldosterone level pending #Syphilis, secondary and Hep B + in window period. -Trying to reach MP and nurse in regards to treatment outpatient, seems as if he has received 3 doses of Penicillin -Will f/u outpt with ID -Will f/u outpt with GI -HIV negative #FEN/GI -no ivf -wnl -renal diet #ppx -scd #dispo: pending renal biopsy results Visit type - Emergency Visit Emergency Visit: Yes ED Registration Date: 08/01/17 Care time: The patient presented to the Emergency Department on the above date and was hospitalized for further evaluation of their emergent condition. - New Patient This patient is new to me today: No - Critical Care Critical Care patient: No
[2017-08-05 00:11] LABS: ATYPICAL pANCA <1:20 titer (Neg:<1:20); C-ANCA <1:20 titer (Neg:<1:20); P-ANCA <1:20 titer (Neg:<1:20); PROTEINASE-3 ANTIBODY <3.5 U/mL (0.0-3.5)
[2017-08-05 07:21] VITALS: BP 134/70; PULSE 97; TEMP 98.3
[2017-08-05 09:01] LABS: ANION GAP 12 (8-16); BLOOD UREA NITROGEN 36 mg/dL (7-18); CALCIUM 8.5 mg/dL (8.5-10.1); CHLORIDE 106 mmol/L (98-107); CO2 23 mmol/L (21-32); CREATININE 3.5 mg/dL (0.7-1.3); GLUCOSE,RANDOM 88 mg/dL (74-106); POTASSIUM 3.8 mmol/L (3.5-5.1); SODIUM 141 mmol/L (136-145)
[2017-08-05] MEDS: amLODIPine BESYLATE 5 MG TABLET (FP) PO SCH (10:06)
[2017-08-05] MEDS ORDERED: PENICILLIN G BENZATHINE 2,400,000 UNIT/4 ML PFS IM ONE (12:30)
[2017-08-05] MEDS ORDERED: PT OWN MED DRAWER 7, Y5N ONE (13:31)
--- NOTE | 2017-08-05 13:44 | DS ---
Physical Exam: Microbiology 08/01/17 08:13 Urine - Urine Clean Catch Urine Culture - Final NO GROWTH OBTAINED Selected Entries 08/05/17 08/05/17 07:20 09:00 Temperature 98.3 F Pulse Rate 97 H Blood Pressure 134/70 O2 Sat by Pulse 100 Oximetry (%) Oxygen Delivery Room Air Method Laboratory Tests 08/01/17 08/01/17 08/01/17 06:00 08:13 08:13 WBC Hgb Hct Plt Count BUN 43 H Creatinine 3.3 H Hemoglobin A1c % Lipase 484 H Renin Activity Aldosterone Urine Protein 2+ H Urine Blood U Random Total Protein Ur Random Sodium Ur Random Urea Nitrogn Urine Creatinine Opiates Screen Methadone Screen Barbiturate Screen Phencyclidine Screen Ur Amphetamines Screen MDMA (Ecstasy) Screen Benzodiazepines Screen Cocaine Screen U Marijuana (THC) Screen LUANA Screen c-ANCA Proteinase 3 (PR3) p-ANCA Atypical p-ANCA Myeloperoxidase Ab Tot Complement (CH50) RPR Titer Reactive 1:2 H T.pallidum Ab (MHA) Reactive C. trachomatis (POPEYE) Hepatitis A IgM Ab Hep Bs Antigen Hep Bs Antibody, Quant Hep B Core IgM Ab Hep C Ab Diagnostic Hepatitis C Antibody HIV 1&2 Antibody Screen HIV P24 Antigen N. gonorrhoeae (POPEYE) 08/01/17 08/01/17 08/01/17 08:13 10:20 10:20 WBC Hgb Hct Plt Count BUN Creatinine Hemoglobin A1c % Lipase Renin Activity Aldosterone Urine Protein Urine Blood U Random Total Protein Ur Random Sodium Ur Random Urea Nitrogn Urine Creatinine Opiates Screen Methadone Screen Barbiturate Screen Phencyclidine Screen Ur Amphetamines Screen MDMA (Ecstasy) Screen Benzodiazepines Screen Cocaine Screen U Marijuana (THC) Screen LUANA Screen Negative c-ANCA <1:20 Proteinase 3 (PR3) <3.5 p-ANCA <1:20 Atypical p-ANCA <1:20 Myeloperoxidase Ab <9.0 Tot Complement (CH50) 59 RPR Titer T.pallidum Ab (MHA) C. trachomatis (POPEYE) Hepatitis A IgM Ab Negative Hep Bs Antigen Negative Hep Bs Antibody, Quant Hep B Core IgM Ab Positive H Hep C Ab Diagnostic Pending Hepatitis C Antibody <0.1 HIV 1&2 Antibody Screen Negative HIV P24 Antigen Negative N. gonorrhoeae (POPEYE) 08/01/17 08/01/17 08/01/17 12:00 12:06 12:06 WBC Hgb Hct Plt Count BUN Creatinine Hemoglobin A1c % Lipase Renin Activity Aldosterone Urine Protein 2+ H Urine Blood 1+ H U Random Total Protein Ur Random Sodium Ur Random Urea Nitrogn Urine Creatinine Opiates Screen Negative Methadone Screen Negative Barbiturate Screen Negative Phencyclidine Screen Negative Ur Amphetamines Screen Negative MDMA (Ecstasy) Screen Negative Benzodiazepines Screen Negative Cocaine Screen Negative U Marijuana (THC) Screen Negative LUANA Screen c-ANCA Proteinase 3 (PR3) p-ANCA Atypical p-ANCA Myeloperoxidase Ab Tot Complement (CH50) RPR Titer T.pallidum Ab (MHA) C. trachomatis (POPEYE) Negative Hepatitis A IgM Ab Hep Bs Antigen Hep Bs Antibody, Quant Hep B Core IgM Ab Hep C Ab Diagnostic Hepatitis C Antibody HIV 1&2 Antibody Screen HIV P24 Antigen N. gonorrhoeae (POPEYE) Negative 08/01/17 08/01/17 08/02/17 12:06 13:00 06:30 WBC Hgb Hct Plt Count BUN 32 H D Creatinine 3.1 H Hemoglobin A1c % Lipase Renin Activity Aldosterone Urine Protein Urine Blood U Random Total Protein 135 H Ur Random Sodium 109 Ur Random Urea Nitrogn 283 Urine Creatinine 36.7 Opiates Screen Methadone Screen Barbiturate Screen Phencyclidine Screen Ur Amphetamines Screen MDMA (Ecstasy) Screen Benzodiazepines Screen Cocaine Screen U Marijuana (THC) Screen LUANA Screen c-ANCA Proteinase 3 (PR3) p-ANCA Atypical p-ANCA Myeloperoxidase Ab Tot Complement (CH50) RPR Titer T.pallidum Ab (MHA) C. trachomatis (POPEYE) Hepatitis A IgM Ab Hep Bs Antigen Hep Bs Antibody, Quant 9.8 L Hep B Core IgM Ab Hep C Ab Diagnostic Hepatitis C Antibody HIV 1&2 Antibody Screen HIV P24 Antigen N. gonorrhoeae (POPEYE) 08/02/17 08/02/17 08/03/17 06:30 06:30 07:00 WBC Hgb Hct Plt Count BUN 33 H Creatinine 3.1 H Hemoglobin A1c % 4.9 Lipase Renin Activity 3.615 Aldosterone 6.1 Urine Protein Urine Blood U Random Total Protein Ur Random Sodium Ur Random Urea Nitrogn Urine Creatinine Opiates Screen Methadone Screen Barbiturate Screen Phencyclidine Screen Ur Amphetamines Screen MDMA (Ecstasy) Screen Benzodiazepines Screen Cocaine Screen U Marijuana (THC) Screen LUANA Screen c-ANCA Proteinase 3 (PR3) p-ANCA Atypical p-ANCA Myeloperoxidase Ab Tot Complement (CH50) RPR Titer T.pallidum Ab (MHA) C. trachomatis (POPEYE) Hepatitis A IgM Ab Hep Bs Antigen Hep Bs Antibody, Quant Hep B Core IgM Ab Hep C Ab Diagnostic Hepatitis C Antibody HIV 1&2 Antibody Screen HIV P24 Antigen N. gonorrhoeae (POPEYE) 08/04/17 08/04/17 08/05/17 07:00 07:00 07:00 WBC 8.3 Hgb 13.1 Hct 38.6 Plt Count 206 BUN 35 H 36 H Creatinine 3.3 H 3.5 H Hemoglobin A1c % Lipase Renin Activity Aldosterone Urine Protein Urine Blood U Random Total Protein Ur Random Sodium Ur Random Urea Nitrogn Urine Creatinine Opiates Screen Methadone Screen Barbiturate Screen Phencyclidine Screen Ur Amphetamines Screen MDMA (Ecstasy) Screen Benzodiazepines Screen Cocaine Screen U Marijuana (THC) Screen LUANA Screen c-ANCA Proteinase 3 (PR3) p-ANCA Atypical p-ANCA Myeloperoxidase Ab Tot Complement (CH50) RPR Titer T.pallidum Ab (MHA) C. trachomatis (POPEYE) Hepatitis A IgM Ab Hep Bs Antigen Hep Bs Antibody, Quant Hep B Core IgM Ab Hep C Ab Diagnostic Hepatitis C Antibody HIV 1&2 Antibody Screen HIV P24 Antigen N. gonorrhoeae (POPEYE) Imaging: Renal U/s- atrophic kidneys with abnormal echogenecity compatible with chronic or medical renal disease Abd u/s- no abnormalities Ribs xray-no acute pathology Doppler Study u/s- right renal atrophy with bilateral echogenic kidneys. no renal vein thrombosis Renal biopsy- Consistent with FSGS HOSPITAL COURSE: Date of Admission:08/01/17 Date of Discharge: 08/05/17 26 year old male with a recently diagnosed history of syphilis (last treatment of penicillin IM was today) and hypertension, also recently diagnosed, who was sent over by care provider for creatinine of 3.8. Patient had full workup done including hepatitis panel, STD screen, and renal biopsy. Results are above. 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 Patient will f/u outpatient at the renal clinic on September 24 in [place] ([address] [place] [address]). For his HTN, patient was restarted on his home losartan 50 mg daily. His tx for syphilis was completed here with his 3rd dose of IM Pen G. Patient will f/u at [facility]. Minutes to complete discharge: 45 <Mulugeta Zaragoza - Last Filed: 08/05/17 16:00> Physical Exam: Patient seen and examined. Patient does not remember how he got the Syphilis. Patient received the last dose today of PEN G 2.4MU. 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 Also was suggested for the patient to follow up with GI clinic for Hep.B follow up. Vital Signs Temperature 98.3 F 08/05/17 07:20 Pulse Rate 97 H 08/05/17 07:20 Respiratory Rate 20 08/05/17 07:20 Blood Pressure 134/70 08/05/17 07:20 O2 Sat by Pulse Oximetry (%) 100 08/05/17 09:00 CBCD WBC 8.3 K/mm3 (4.0-10.0) 08/04/17 07:00 RBC 4.62 M/mm3 (4.00-5.60) 08/04/17 07:00 Hgb 13.1 GM/dL (11.7-16.9) 08/04/17 07:00 Hct 38.6 % (35.4-49) 08/04/17 07:00 MCV 83.6 fl (80-96) 08/04/17 07:00 MCHC 33.9 g/dl (32.0-35.9) 08/04/17 07:00 RDW 12.7 % (11.9-15.9) 08/04/17 07:00 Plt Count 206 K/MM3 (134-434) 08/04/17 07:00 MPV 10.0 fl (7.5-11.1) 08/04/17 07:00 CMP Sodium 141 mmol/L (136-145) 08/05/17 07:00 Potassium 3.8 mmol/L (3.5-5.1) 08/05/17 07:00 Chloride 106 mmol/L (98-107) 08/05/17 07:00 Carbon Dioxide 23 mmol/L (21-32) 08/05/17 07:00 Anion Gap 12 (8-16) 08/05/17 07:00 BUN 36 mg/dL (7-18) H 08/05/17 07:00 Creatinine 3.5 mg/dL (0.7-1.3) H 08/05/17 07:00 Creat Clearance w eGFR 24.88 (>60) 08/02/17 06:30 Random Glucose 88 mg/dL (74-106) 08/05/17 07:00 Calcium 8.5 mg/dL (8.5-10.1) 08/05/17 07:00 Total Bilirubin 0.4 mg/dL (0.2-1.0) D 08/02/17 06:30 AST 16 U/L (15-37) 08/02/17 06:30 ALT 15 U/L (12-78) D 08/02/17 06:30 Alkaline Phosphatase 121 U/L (45-117) H D 08/02/17 06:30 Total Protein 6.1 g/dl (6.4-8.2) L 08/02/17 06:30 Albumin 3.0 g/dl (3.4-5.0) L 08/02/17 06:30 Home Medications Medication Instructions Recorded Losartan Potassium 50 mg PO DAILY 08/01/17 Losartan Potassium 50 mg PO DAILY #30 tablet 08/05/17 <Alejandro Damian - Last Filed: 08/05/17 20:07> Discharge Summary Reason For Visit: RENAL FAILURE Current Active Problems Acute hepatitis B (Acute) Renal failure (Acute) Syphilis (Acute) Hypertension (Chronic) - Home Medications Comprehensive Discharge Medication List: Ambulatory Orders Losartan Potassium 50 mg PO DAILY 08/01/17 <Mulugeta Zaragoza - Last Filed: 08/05/17 16:00> - Home Medications Comprehensive Discharge Medication List: Ambulatory Orders Losartan Potassium 50 mg PO DAILY 08/01/17 Losartan Potassium 50 mg PO DAILY #30 tablet 08/05/17 <Alejandro Damian - Last Filed: 08/05/17 20:07> Condition: Stable - Instructions Diet, Activity, Other Instructions: APPOINTMENT FOR RENAL CLINIC SEPTEMBER 24 930 AM 20 [facility] [phone] [place] YOU NEED TO GO TO [address] BEFORE APPT You were found to have acute kidney failure. Please follow up with your primary doctor within 1 week and kidney doctor on september 24. The appointment is above. You will need a repeat hepatitis and HIV test in 6 months. Start taking your losartan 50 mg daily again and stop taking norvasc. If you have chest pain, shortness of breath, or any new/worsening symptoms please come back to the hospital immediately. Referrals: Jd Frances MD [Staff Physician] - Disposition: HOME This patient is new to me today: No Emergency Visit: Yes ED Registration Date: 08/01/17 Care time: The patient presented to the Emergency Department on the above date and was hospitalized for further evaluation of their emergent condition. Critical Care patient: No - Discharge Referral Referred to [facility] Med P.C.: No <Mulugeta Zaragoza - Last Filed: 08/05/17 16:00>
[2017-08-05 14:16] LABS: RENIN ACTIVITY(PRA) 3.615 ng/mL/hr (0.167-5.380)
--- NOTE | 2017-08-05 17:31 | PN ---
Progress Note (short form) - Note Progress Note: Renal follow up for [place] Pt seen and examined at the bedside Biopsy results reviewed with pt Vital Signs Temperature 98.3 F 08/05/17 07:20 Pulse Rate 97 H 08/05/17 07:20 Respiratory Rate 20 08/05/17 07:20 Blood Pressure 134/70 08/05/17 07:20 O2 Sat by Pulse Oximetry (%) 100 08/05/17 09:00 Intake & Output 08/02/17 08/03/17 08/04/17 08/05/17 23:59 23:59 23:59 23:59 Intake Total 1279 498 650 200 Output Total 350 Balance 1279 148 650 200 NAD awake and alert RRR, no M/R CTA, no rales or wheeze Soft NT/ND no LE edema CBC, BMP 08/04/17 07:00 08/05/17 07:00 26 year old gentleman with recently diagnosed syphilis (getting IM PCN), recently diagnosed hypertension who was seen in our office yesterday for acute renal failure with Cr of 3.88 and referred to the ER for diagnostic work up and therapy. 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
--- NOTE | 2017-08-11 15:43 | PATH ---
Surgical Pathology Report Patient Name: JERO STERN Med. Rec. #: [id number] /Age/Gender: 1990 (Age: 26) / M Account: [id number] Location: [facility] MED/SURG Taken: 08/03/2017 Received: 08/03/2017 Reported: 08/11/2017 Physicians: Kirk Aviles M.D. Specimen(s) Received RENAL BIOPSY Clinical History None Provided Intraoperative Consult Diagnosis Gross exam: Renal tissue present. Rare possible glomeruli identified. Emily Weldon M.D., 08/03/17 Final Diagnosis KIDNEY, BIOPSY: 1. 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 See comment. 2. Tubular atrophy & interstitial fibrosis, severe, with multifocal tubular basement membrane irregularities. 3. Arteriosclerosis, focal, severe. Case sent for consultation to Dr. Jose Bob from [place], [place] ([id number]), the diagnosis above reflects his opinion. See complete report ([id number]) from [place], [place] for additional details. Electronically Signed London Weldon M.D. Gross Description Received in saline labeled "renal biopsy right," are 2 tovar-red, cylindrical portions of soft tissue measuring 0.7 and 0.9 cm in length and averaging 0.1 cm in diameter. The specimens are divided, placed into 10% buffered formalin, Jeffery fixative and glutaraldehyde. The specimen is sent to [facility] for further studies. /08/03/2017 saudi08/03/2017
== END 2017-08-05 14:49 | disposition home or self-care (01) | DRG 460 ==
LOC: JER 07:14 → JERBED 10:37 → J8W 17:26
PROVIDERS: ADMIT Internal Medicine; ATTEND Internal Medicine
PROC: 0TB03ZX Excision of Right Kidney, Percutaneous Approach, Diagnostic (ICD-10-PCS; principal; 2017-08-03)
DX: N17.9 Acute kidney failure, unspecified (principal); I10 Essential (primary) hypertension; A53.9 Syphilis, unspecified; B19.10 Unspecified viral hepatitis B without hepatic coma
CPT/HCPCS: 36415; 50200; 71101-TC-FY; 76098-TC-FY; 76700-TC; 76775-TC; 76942-TC; 76998-TC; 80048; 80053; 80074; 80307; 81003; 81015; 82088; 82570; 83036; 83520; 83690; 83735; 84100; 84156; 84244; 84300; 84540; 85025; 85610; 85730; 86038; 86162; 86256; 86593; 86780; 87086; 87389; 87491; 87591; 87899; 88300-TC; 88329; 93005; 93010; 93975; 97116-GP; 97161-GP; 99284-25; J7030

== ENCOUNTER 2017-08-10 11:05 | Emergency (ER) | payer OTHER ==
[2017-08-10 11:13] VITALS: BP 149/93; PULSE 92; TEMP 98.2; BMI 20.5
--- NOTE | 2017-08-10 11:21 | PDOC ---
History of Present Illness - General Chief Complaint: Pain, Acute Stated Complaint: REVISIT, PAIN (PCP SENT) Time Seen by Provider: 08/10/17 11:20 Past History - Past Medical History Allergies/Adverse Reactions: Allergies Allergy/AdvReac Type Severity Reaction Status Date / Time No Known Allergies Allergy Verified 08/10/17 11:06 Home Medications: Ambulatory Orders Losartan Potassium 50 mg PO DAILY 08/01/17 Losartan Potassium 50 mg PO DAILY #30 tablet 08/05/17 COPD: No GI Disorders: Yes (AKD) HTN: Yes Other medical history: syphilis - Immunization History Immunization Up to Date: Yes - Suicide/Smoking/Psychosocial Hx Smoking History: Never smoked Have you smoked in the past 12 months: No Hx Alcohol Use: No Drug/Substance Use Hx: No *Physical Exam - Vital Signs Last Vital Signs Temp Pulse Resp BP Pulse Ox 98.2 F 92 H 18 149/93 99 08/10/17 11:06 08/10/17 11:06 08/10/17 11:06 08/10/17 11:06 08/10/17 11:06
[2017-08-10] MEDS ORDERED: SODIUM CHLORIDE 0.9% 1000 ML INFUS.BAG IV ONE (11:46)
--- NOTE | 2017-08-10 12:07 | PDOC ---
History of Present Illness - General Chief Complaint: Pain, Acute Stated Complaint: REVISIT, PAIN (PCP SENT) Time Seen by Provider: 08/10/17 11:20 History Source: Patient Exam Limitations: No Limitations - History of Present Illness Initial Comments: 08/10/17 11:56 The patient is a 26M with a PMH of HTN, hep B, and FSGS (dx via bx) who presents to the ER with R flank pain. The patient states that his pain started 3 days ago, is intermittent, described as sharp, 8/10 with no radiation, and no exacerbating or alleviating factors. The patient denies any hematuria, dysuria, testicular pain, nausea, vomiting, but states that he had a fever of "110" on . The patient also admits to constipation for 4 days with no BM. Past History - Past Medical History Allergies/Adverse Reactions: Allergies Allergy/AdvReac Type Severity Reaction Status Date / Time No Known Allergies Allergy Verified 08/10/17 11:06 Home Medications: Ambulatory Orders Losartan Potassium 50 mg PO DAILY #30 tablet 08/05/17 COPD: No GI Disorders: Yes (AKD) HTN: Yes Other medical history: syphilis - Immunization History Immunization Up to Date: Yes - Suicide/Smoking/Psychosocial Hx Smoking History: Never smoked Have you smoked in the past 12 months: No Hx Alcohol Use: No Drug/Substance Use Hx: No Review of Systems - Review of Systems Able to Perform ROS?: Yes Comments:: 08/10/17 12:12 GENERAL/CONSTITUTIONAL: Positive for fever. No chills. No weakness. HEAD, EYES, EARS, NOSE AND THROAT: No change in vision. No ear pain or discharge. No sore throat. CARDIOVASCULAR: No chest pain, palpitations, or lightheadedness. RESPIRATORY: No cough, wheezing, shortness of breath, or hemoptysis. GASTROINTESTINAL: Positive for constipation. No nausea, vomiting, diarrhea, or abdominal pain. GENITOURINARY: Positive for R flank pain. No dysuria, frequency, hematuria, or change in urination. MUSCULOSKELETAL: No joint or muscle swelling or pain. No neck or back pain. SKIN: No rash or lesions. NEUROLOGIC: No headache, numbness, tingling, weakness, loss of consciousness, or change in strength/sensation. ENDOCRINE: No increased thirst. No abnormal weight change. HEMATOLOGIC/LYMPHATIC: No anemia, easy bleeding, or history of blood clots. ALLERGIC/IMMUNOLOGIC: No hives or skin allergy. Is the patient limited Bermudian proficient: No *Physical Exam - Vital Signs Last Vital Signs Temp Pulse Resp BP Pulse Ox 98.2 F 92 H 18 149/93 99 08/10/17 11:06 08/10/17 11:06 08/10/17 11:06 08/10/17 11:06 08/10/17 11:06 - Physical Exam Comments: 08/10/17 12:13 GENERAL: Well developed, well nourished. Awake and alert. No acute distress. HEENT: Normocephalic, atraumatic. Hearing grossly normal. Moist mucous membranes. PERRLA, EOMI. No conjunctival pallor. Sclera are non-icteric. NECK: Supple. Full ROM. No JVD. CARDIOVASCULAR: Regular rate and rhythm. No murmurs, rubs, or gallops. PULMONARY: No evidence of respiratory distress. Lungs clear to auscultation bilaterally. No wheezing, rales or rhonchi. ABDOMINAL: Soft. Non-tender. Non-distended. No rebound or guarding. GENITOURINARY: R sided CVA tenderness. MUSCULOSKELETAL: Normal range of motion at all joints. No bony deformities or tenderness. EXTREMITIES: No cyanosis. No clubbing. No edema. No calf tenderness. SKIN: Warm and dry. Normal capillary refill. No rashes. No jaundice. NEUROLOGICAL: Alert, awake, appropriate. Cranial nerves 2-12 intact. Normal speech. Gait is normal without ataxia. PSYCHIATRIC: Cooperative. Good eye contact. Appropriate mood and affect. ED Treatment Course - LABORATORY CBC & Chemistry Diagram: 08/10/17 11:52 08/10/17 11:52 Medical Decision Making - Medical Decision Making 08/10/17 12:14 The patient is a 26M with a PMH of FSGS, HTN, and hep B who presents to the ER with R flank pain. I am concerned for a hematoma vs infection. I have discussed the patient with Dr. Frances (pt's nephro) who agrees with the plan and will follow the pt. 08/10/17 12:44 CMP significant for BUN/Cr of 32/3.6. CBC unremarkable. Pending UA and U/S. 08/10/17 14:38 U/S negative for acute pathology. 08/10/17 14:55 Pt will f/u with supportability engineer this week and take stool softner. Pt ready for d/ c. *DC/Admit/Observation/Transfer Diagnosis at time of Disposition: Flank pain - Discharge Dispostion Disposition: HOME Condition at time of disposition: Stable Admit: No - Referrals - Patient Instructions Printed Discharge Instructions: DI for Flank Pain Additional Instructions: Please return to the ER if you have any signs or symptoms of chest pain, shortness of breath, uncontrollable fever, chills, nausea, vomiting, numbness, tingling, or weakness in any part of your body, changes in vision, or slurred speech. Please take your a stool softner such as Miralax as directed. Please follow up with your supportability engineer (kidney doctor) and primary care physician in 2-3 days. Please return to the ER if symptoms persist, worsen, or new symptoms arise. - Post Discharge Activity
[2017-08-10 12:12] LABS: BASO % 1.1 % (0-2.0); EOS % 1.6 % (0-4.5); HEMATOCRIT 35.9 % (35.4-49); HEMOGLOBIN 12.3 GM/dL (11.7-16.9); LYMPH % 19.3 % (8-40); MCH 28.6 pg (25.7-33.7); MCHC 34.3 g/dl (32.0-35.9); MEAN CELL VOLUME 83.4 fl (80-96); MEAN PLT VOLUME 9.4 fl (7.5-11.1); MONO % 7.2 % (3.8-10.2); NEUT % 70.8 % (42.8-82.8); PLATELET COUNT 231 K/MM3 (134-434); RBC 4.31 M/mm3 (4.00-5.60); RDW 12.7 % (11.9-15.9); WHITE BLOOD COUNT 9.8 K/mm3 (4.0-10.0)
[2017-08-10 12:38] LABS: ALBUMIN 3.2 g/dl (3.4-5.0); ANION GAP 6 (8-16); BLOOD UREA NITROGEN 32 mg/dL (7-18); CALCIUM 8.9 mg/dL (8.5-10.1); CHLORIDE 109 mmol/L (98-107); CO2 24 mmol/L (21-32); CREATININE 3.6 mg/dL (0.7-1.3); GLUCOSE,RANDOM 97 mg/dL (74-106); POTASSIUM 4.5 mmol/L (3.5-5.1); SGOT/AST 16 U/L (15-37); SGPT/ALT 12 U/L (12-78); SODIUM 139 mmol/L (136-145)
[2017-08-10 12:40] LABS: ALK PHOS 129 U/L (45-117); BILIRUBIN,TOTAL 0.3 mg/dL (0.2-1.0); TOT PROT 7.3 g/dl (6.4-8.2)
[2017-08-10 13:08] LABS: URINE APPEARANCE CLEAR; URINE BILIRUBIN NEGATIVE (<2.0 mg/dL); URINE BLOOD NEGATIVE (NEGATIVE); URINE COLOR STRAW; URINE GLUCOSE (UA) 1+ (NEGATIVE); URINE KETONE NEGATIVE (NEGATIVE); URINE LEUK ESTERASE NEGATIVE (NEGATIVE); URINE NITRITE NEGATIVE (NEGATIVE); URINE UROBILINOGEN NEGATIVE mg/dL (0.2-1.0)
[2017-08-10 13:09] LABS: URINE PROTEIN 2+ (NEGATIVE)
[2017-08-10 13:23] LABS: COCAINE, UR NEGATIVE ng/ml (CUTOFF=300); METHADONE, UR NEGATIVE ng/ml (CUTOFF=300); OPIATES, URI NEGATIVE ng/ml (CUTOFF=300); PHENCYCLIDINE,URINE NEGATIVE ng/ml (CUTOFF=25); URINE AMPHETAMINES NEGATIVE ng/ml (CUTOFF=500); URINE BARBITURATES NEGATIVE ng/ml (CUTOFF=200); URINE BENZODIAZEPINES NEGATIVE ng/ml (CUTOFF=200)
[2017-08-10 14:18] LABS: URINE BACTERIA RARE /hpf (NONE SEEN); URINE MUCUS RARE
[2017-08-10] MEDS ORDERED: KETOROLAC TROMETHAMINE 30 MG/1 ML VIAL IVPUSH ONE (15:19)
[2017-08-10] MEDS ORDERED: KETOROLAC TROMETHAMINE 30 MG/1 ML VIAL ONE (15:23)
== END 2017-08-10 15:30 | disposition home or self-care (01) ==
LOC: JER 11:05
PROC: 3E0333Z Introduction of Anti-inflammatory into Peripheral Vein, Percutaneous Approach (ICD-10-PCS; principal; 2017-08-10)
DX: R10.31 Right lower quadrant pain (principal); I10 Essential (primary) hypertension; Z86.19 Personal history of other infectious and parasitic diseases
CPT/HCPCS: 36415; 76775-TC; 80053; 80307; 81003; 81015; 85025; 96374; 99282-25; J7030

== ENCOUNTER 2019-11-23 17:12 | Inpatient (IN) | payer OTHER ==
[2019-11-23 17:20] VITALS: BMI 20.7
[2019-11-23] MEDS ORDERED: ONDANSETRON 4 MG/2 ML VIAL IM ONE (17:26)
[2019-11-23] MEDS ORDERED: SODIUM CHLORIDE 0.9% 500 ML INFUS.BAG IV ONE (17:26)
--- NOTE | 2019-11-23 17:26 | PDOC ---
Rapid Medical Evaluation Chief Complaint: Vomiting/Diarrhea Time Seen by Provider: 11/23/19 17:20 Medical Evaluation: Allergies Allergy/AdvReac Type Severity Reaction Status Date / Time No Known Allergies Allergy Verified 08/10/17 11:06 Vital Signs Temp Pulse Resp BP Pulse Ox 99.7 F H 135 H 18 188/123 H 98 11/23/19 17:15 11/23/19 17:15 11/23/19 17:15 11/23/19 17:15 11/23/19 17:15 11/23/19 17:24 29 year old male with pmhx of HTN renal failure on HD T Sa completed yesterday with 4 days of vomiting and diarrhea. Unable to tolerate PO. Denies fever chill abdominal pain Sister at home with same symptoms PE: Tachycardic Abdomen soft non tender Chest port without erythema Plan Labs Fluids Zofran PO challenge Pt to precede to ED for further evaluation and treatment at the discretion of the provider in the ED Discharge Disposition - Discharge Dispostion Condition at time of disposition: Stable Last Admission D/C Date: 08/05/17 - Referrals - Patient Instructions - Post Discharge Activity
[2019-11-23] MEDS ORDERED: ONDANSETRON 4 MG/2 ML VIAL IVPUSH ONE (17:51)
--- NOTE | 2019-11-23 17:52 | PDOC ---
History of Present Illness - General Chief Complaint: Vomiting/Diarrhea Stated Complaint: VOMITING Time Seen by Provider: 11/23/19 17:20 - History of Present Illness Initial Comments: 11/23/19 17:49 29 y/o M with renal failure on dialysis Thursday and Tuesdays for renal disease he does not know thename of, presents for evaluation of vomiting and diarrhea x3 days Past History - Medical History Allergies/Adverse Reactions: Allergies Allergy/AdvReac Type Severity Reaction Status Date / Time No Known Allergies Allergy Verified 08/10/17 11:06 Home Medications: Ambulatory Orders Losartan Potassium 50 mg PO DAILY #30 tablet 08/05/17 COPD: No GI Disorders: Yes (AKD) HTN: Yes Other medical history: DIALYSIS - 2X A WEEK- PERMA CATH ON RT.SIDE CHEST. - Immunization History Immunization Up to Date: Yes - Psycho-Social/Smoking History Smoking History: Never smoked Have you smoked in the past 12 months: No Information on smoking cessation initiated: No - Substance Abuse Hx (Audit-C & DAST Scrn) How often the patient has a drink containing alcohol: Never Score: In Men: 4 or > Positive; In Women: 3 or > Positive: 0 Screen Result (Pos requires Nsg. Audit-10AR): Negative In the last yr the pt used illegal drug/Rx for NonMed reason: No Score: Yes response is considered Positive: 0 Screen Result (Positive result requires Nsg. DAST-10): Negative Review of Systems - Review of Systems Constitutional: Yes: Fever ABD/GI: Yes: Diarrhea, Nausea, Vomiting *Physical Exam - Vital Signs Last Vital Signs Temp Pulse Resp BP Pulse Ox 99.7 F H 135 H 18 188/123 H 98 11/23/19 17:15 11/23/19 17:15 11/23/19 17:15 11/23/19 17:15 11/23/19 17:15 - Physical Exam General Appearance: Yes: Nourished, Appropriately Dressed. No: Apparent Distress HEENT: positive: Symmetrical Neck: positive: Supple Respiratory/Chest: positive: Normal Breath Sounds. 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
[2019-11-23] MEDS ORDERED: LABETALOL HCL 5 MG/1 ML (100MG/20 ML VIAL) IVPUSH ONE ×2 (18:02→22:14)
[2019-11-23 18:10] LABS: BASO % 0.6 % (0-2.0); EOS % 0.6 % (0-4.5); HEMATOCRIT 34.9 % (35.4-49); HEMOGLOBIN 11.6 GM/dL (11.7-16.9); LYMPH % 14.7 % (8-40); MCH 28.8 pg (25.7-33.7); MCHC 33.3 g/dl (32.0-35.9); MEAN CELL VOLUME 86.6 fl (80-96); MEAN PLT VOLUME 8.7 fl (7.5-11.1); MONO % 4.2 % (3.8-10.2); NEUT % 79.9 % (42.8-82.8); PLATELET COUNT 178 K/MM3 (134-434); RBC 4.03 M/mm3 (4.00-5.60); RDW 13.3 % (11.9-15.9); WHITE BLOOD COUNT 8.2 K/mm3 (4.0-10.0)
[2019-11-23 18:37] LABS: ALBUMIN 4.1 g/dl (3.4-5.0); ALK PHOS 111 U/L (45-117); ANION GAP 16 MMOL/L (8-16); BILIRUBIN,TOTAL 0.8 mg/dL (0.2-1); BLOOD UREA NITROGEN 69.5 mg/dL (7-18); CALCIUM 9.6 mg/dL (8.5-10.1); CHLORIDE 106 mmol/L (98-107); CO2 16 mmol/L (21-32); GLUCOSE,RANDOM 89 mg/dL (74-106); LIPASE 314 U/L (73-393); POTASSIUM 4.1 mmol/L (3.5-5.1); SGOT/AST 5 U/L (15-37); SGPT/ALT 11 U/L (13-61); SODIUM 138 mmol/L (136-145); TOT PROT 8.2 g/dl (6.4-8.2)
[2019-11-23 18:40] LABS: CREATININE 13.9 mg/dL (0.55-1.3)
[2019-11-23] MEDS ORDERED: ACETAMINOPHEN 1000 MG/100 ML VIAL (NON FORMULARY) IVPB ONE (18:40)
[2019-11-23] MEDS ORDERED: amLODIPine BESYLATE 5 MG TABLET (FP) PO ONE (18:45)
[2019-11-23] MEDS ORDERED: ACETAMINOPHEN INJECTION 100 ML IVPB ONE (18:46)
--- NOTE | 2019-11-23 19:03 | PDOC ---
Documentation entered by Brenton Garcia SCRIBE, acting as scribe for Kimberlee Moulton DO. Kimberlee Moulton DO: This documentation has been prepared by the Pooja bhagat Nirvannie, SCRIBE, under my direction and personally reviewed by me in its entirety. I confirm that the documentation accurately reflects all work, treatment, procedures, and medical decision making performed by me. *Physical Exam - Vital Signs Last Vital Signs Temp Pulse Resp BP Pulse Ox 99.7 F H 135 H 18 188/123 H 98 11/23/19 17:15 11/23/19 17:15 11/23/19 17:15 11/23/19 17:15 11/23/19 17:15 - Physical Exam 11/23/19 19:06 Constitutional: +Warm to touch. Awake, alert, oriented. No acute distress. Head: Normocephalic. Atraumatic Eyes: PERRL. EOMI. Conjunctivae are not pale. ENT: Mucous membranes are moist and intact. Posterior pharynx without exudates or erythema. Uvula midline. Neck: Supple. Full ROM. No lymphadenopathy. Cardiovascular: +Tachycardic. Regular rhythm. S1, S2 regular. Distal pulses are 2+ and symmetric. Pulmonary/Chest: +Right anterior chest wall dialysis port. No evidence of respiratory distress. Clear to auscultation bilaterally No wheezing, rales or rhonchi. Abdominal: Soft and non-distended. There is no tenderness. No rebound, guarding or rigidity. No organomegaly. No palpable masses. Good bowel sounds. Back: No CVA tenderness. Musculoskeletal: No edema. No cyanosis. No clubbing. Full range of motion in all extremities. No calf tenderness. Radial/pedal pulses are intact and 2+ bilaterally Skin: Skin is warm and dry. No petechiae. No purpura. Neurological: Alert and oriented to person, place, and time. Cranial nerves II-XII are grossly intact. Normal speech. Strength is grossly symmetric. No sensory deficits. Psychiatric: Good eye contact. Normal interaction, affect and behavior. Heart Score/ECG Review - ECG Intrepretation Comment:: 11/23/19 19:02 sinus tach at 112, nl axis, nl interval, no acute st/t wave findings, lvh ED Treatment Course - LABORATORY CBC & Chemistry Diagram: 11/23/19 17:45 11/23/19 17:45 - Medications Given in the ED: ED Medications Discontinued Medications Generic Name Dose Route Start Last Admin Trade Name Patricia PRN Reason Stop Dose Admin Ondansetron HCl 4 mg 11/23/19 17:26 11/23/19 18:02 Zofran Injection IM 11/23/19 17:27 Not Given ONCE ONE Ondansetron HCl 4 mg 11/23/19 17:51 11/23/19 18:02 Zofran Injection IVPUSH 11/23/19 17:52 4 mg ONCE ONE Administration Sodium Chloride 1,000 ml 11/23/19 17:26 11/23/19 18:02 Normal Saline - IV 11/23/19 17:27 Not Given ONCE ONE ED Progress Note - Progress Note Progress Note: 11/23/19 19:07 The patient is a 29 year old male with a significant past medical history of CKD (on HD , Thu; missed dialysis yesterday), HTN, Hep B, and FSGS (requiring transplant) who presents to the ED with 4 days of nausea, vomiting, and diarrhea. As per patient, he received missed dialysis yesterday and notes recent ly being evaluated in an ER in at which time he received a negative CXR. Patient denies any abdominal pain, lower extremity edema, chest pain, or shortness of breath. Patient is not currently on the transplant list secondary to lack of SS number. Allergies: Vancomycin, shellfish Dialysis: [place] Medical Decision Making - Medical Decision Making 11/23/19 18:59 a/p: 29yo male with esrd on hd /thu who misse HD yesterday with hypertension and 4 days of n/v/d -nbnb vomitus -no blood in stool -pt arrives hypertensive, given labetalol by prior provider, upgraded to main er for further eval -pt denies abd pain -pt denies dysuria -pt with a HD catheter to R chest wall without surrounding erythema -will send labs, ekg, cxr, cultures, ua, ucx -will send covid -will monitor and reassess 11/23/19 20:[address] Mary Ellen Jenkins who will perform HD tomorrow cultures sent cxr clear other than HD catheter 11/23/19 22:12 ct without acute findings other than renal atrophy b/l pt with uncontrolled bp and renal failure requiring hd 11/23/19 22:15 microblog sent to [facility] 11/23/19 23:13 case discussed with [facility] who accepts pt to service Discharge - Discharge Information Problems reviewed: Yes Clinical Impression/Diagnosis: Hypertension, Renal failure Condition: Fair - Admission Yes - Follow up/Referral - Patient Discharge Instructions - Post Discharge Activity
[2019-11-23 19:10] LABS: INR 0.99 (0.83-1.09); PROTHROMBIN TIME (PATIENT) 11.7 SEC (9.7-13.0)
[2019-11-23] MEDS ORDERED: amLODIPine BESYLATE 5 MG TABLET (FP) ONE (19:25)
[2019-11-23 20:11] LABS: EPI CELLS 11 /uL (0-25.1); HYALINE CASTS 0 /uL (0-3.1); PH,URINE 6.5 (5.0-8.0); URINE APPEARANCE CLEAR; URINE BACTERIA 5 /uL (0-1359); URINE BILIRUBIN NEGATIVE (NEGATIVE); URINE COLOR YELLOW; URINE GLUCOSE (UA) TRACE (NEGATIVE); URINE KETONE TRACE (NEGATIVE); URINE LEUK ESTERASE NEGATIVE (NEGATIVE); URINE NITRITE NEGATIVE (NEGATIVE); URINE PROTEIN 4+ (NEGATIVE); URINE RBC 17 /uL (0-23.9); URINE UROBILINOGEN 0.2 mg/dL (0.2-1.0); URINE WBC 8 /uL (0-25.8)
--- NOTE | 2019-11-23 23:00 | PN ---
Teaching Attending Note Name of Resident: Aldo Mayers ATTENDING PHYSICIAN STATEMENT I saw and evaluated the patient. I reviewed the resident's note and discussed the case with the resident. I agree with the resident's findings and plan as documented. SUBJECTIVE: Patient is a 29 year old man with a PMH of ESRD (on hemodialysis; Tues, Sat; mis sed dialysis yesterday), HTN, Hepatitis B and FSGS who presents to the ER with 4 days of nausea, vomiting and diarrhea. He missed hemodialysis yesterday and notes recently being evaluated in an ER in [place] at which time he received a negative CXR. Patient denies fever, chills, headache, abdominal pain, lower extremity edema, chest pain or shortness of breath. Patient is not currently on the transplant list secondary to lack of SS number. Denies alcohol, tobacco or illicit drug use. No sick contacts or recent travels. Family history is unremarkable. OBJECTIVE: Alert Vital Signs Period Temp Pulse Resp BP Sys/Stover Pulse Ox Last 24 Hr 97.8 F-100.0 F 94-135 14-18 164-188/110-123 98-100 HEENT: No Jaundice, eye redness or discharge, PERRLA, EOMI. Normocephalic, atraumatic. External ears are normal and hearing is grossly intact. No nasal discharge. Neck: Supple, nontender. No palpable adenopathy or thyromegaly. No JVD Chest: Right chest permacath. Good effort. Clear to auscultation and percussion. Heart: Regular. No S3, rub or murmur Abdomen: Not distended, soft, nontender and no HSM. No rebound or guarding. Normal bowel sounds. Ext: Peripheral pulses intact. No leg edema. Skin: Warm and dry. No petechiae, rash or ecchymosis. Neuro: Alert. Oriented x3. CN 2-12 grossly intact. Sensation grossly intact in all four extremities and DTR are symmetric. Psych: Appropriate mood and affect. Good insight. Home Medications Medication Instructions Recorded Losartan Potassium 50 mg PO DAILY #30 tablet 08/05/17 Abnormal Lab Results 11/23/19 11/23/19 11/23/19 17:45 17:45 17:45 Hgb 11.6 L Hct 34.9 L Carbon Dioxide 16 L BUN 69.5 H Creatinine 13.9 H* AST 5 L ALT 11 L Urine Protein 4+ H Urine Ketones Trace H Urine Blood 1+ H Current Medications Generic Name Dose Route Start Last Admin Trade Name Freq PRN Reason Stop Dose Admin Amlodipine Besylate 5 mg 11/24/19 10:00 Norvasc - PO DAILY [facility] Heparin Sodium (Porcine) 5,000 unit 11/24/19 06:00 Heparin - SQ TID [facility] Lactated Ringer's 1,000 mls @ 75 mls/hr 11/24/19 00:45 Lactated Ringers Solution IV ASDIR [facility] Ondansetron HCl 4 mg 11/24/19 00:44 Zofran Injection IVPUSH Q6H PRN NAUSEA ASSESSMENT AND PLAN: 1. ESRD and Uncontrolled Hypertension - GI symptoms may be due to uremia and/or uncontrolled hypertension. Likely chronically underdialyzed - get dialyzed via inefficient permacath and only twice a week due to lack of health insurance. No acute abnormality on noncontrast CT abdomen/pelvis - shows marked renal atrophy (R>L). Will arrange for adequate hemodialysis, ensure adequate and gradual dialytic fluid removal, consult Vascular surgery for an AV fistula creation and treat with IV Zofran and Protonix. No acute abnormality on CXR - shows right chest hemodialysis catheter. ER staff prescribed Tylenol, Amlodipine, IV Labetalol and Zofran for the patient. Will restart suitable outpatient antihypertensive drugs when clinically appropriate. Subsequently, will revise regimen to ensure [id number] excellent BP control. Patient counseled on the injurious effects of uncontrolled hypertension. Nonpharmacologic measures to control hypertension like weight loss, salt restriction and exercise stressed. Importance of adherence to treatment regimen and attainment of normotension emphasized. Consult Nephrology. Avoid nephrotoxic agents such as NSAIDS, aminoglycosides, contrast dyes and certain Alternative medicine products. Viral testing for COVID-19 ordered and patient placed on airborne, droplet and contact isolation. EKG shows sinus tachyardia at 112/minute, LVH and QTc [address]-T wave changes. Initial troponin is negative. Will admit to telemetry and consult GI. Consult die out worker to assist with access to care/health insurance issues. Will continue comprehensive care for all of patients comorbid conditions. 2. Anemia - Likely chiefly due to CKD. Do basic anemia work up including serial stool guaiacs, reticulocyte count and iron studies. 3. DVT prophylaxis - Heparin 5000u sq tid. 4. Advance directives - Full code
[2019-11-24] MEDS ORDERED: LACTATED RINGERS SOLUTION 1,000 ML IV SCH (00:45)
--- NOTE | 2019-11-24 01:08 | HP ---
CHIEF COMPLAINT: Nausea & Vomiting PCP: Dr. Tamez HISTORY OF PRESENT ILLNESS: 29 y.o. M PMHx ESRD (HD sat/, has been on it for 1.5 years), HTN, Hep B, FSGS. Patient states he has been having abdominal pain with nausea and vomiting for the past 3-4 days. Has had 8 episodes a day NBNB mainly white in color his most recent episode was this morning. He goes to [facility] for hemodialysis on Tuesdays and Saturdays but missed his most recent session. Patient stated he typically produces a good amount of urine going 9-10 times a day producing urine that is clear-yellow in color. Patient also admits to 6 episodes of diarrhea in the past 3 days. Patient is not currently on the transplant list due to lack of a social security number. Family Hx is significant for kidney stones. Has not traveled, no sick contact. 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 Is originally form [place] but now lives in [place] with his family. Patient has previous admissions here in 2018 due to untreated syphilis and abnormal Cr values. He was subsequently treated a nd discharged home. ER course was notable for: (1) Zofran 4mg IV X2 (2) Labetalol 20mg IV X2 (3) Amlodipine 5mg Recent Travel: None PAST MEDICAL HISTORY: ESRD (HD sat/), HTN, Hep B, FSGS PAST SURGICAL HISTORY: PD placement abdomen and neck. Social History: Smoking: None Alcohol: None Drugs: None Allergies shellfish derived Allergy (Unknown, Verified 11/23/19 18:05) vancomycin Allergy (Verified 11/23/19 18:05) HOME MEDICATIONS: Home Medications Medication Instructions Recorded Losartan Potassium 50 mg PO DAILY #30 tablet 08/05/17 REVIEW OF SYSTEMS CONSTITUTIONAL: Absent: fever, chills, diaphoresis, generalized weakness, malaise, loss of appetite, weight change HEENT: Absent: rhinorrhea, nasal congestion, throat pain, throat swelling, difficulty swallowing, mouth swelling, ear pain, eye pain, visual changes CARDIOVASCULAR: Absent: chest pain, syncope, palpitations, irregular heart rate, lightheadedness, peripheral edema RESPIRATORY: Absent: cough, shortness of breath, dyspnea with exertion, orthopnea, wheezing, stridor, hemoptysis GASTROINTESTINAL: Nausea, vomiting Absent: abdominal pain, abdominal distension, diarrhea, constipation, melena, hematochezia GENITOURINARY: Absent: dysuria, frequency, urgency, hesitancy, hematuria, flank pain, genital pain MUSCULOSKELETAL: Absent: myalgia, arthralgia, joint swelling, back pain, neck pain SKIN: Absent: rash, itching, pallor HEMATOLOGIC/IMMUNOLOGIC: Absent: easy bleeding, easy bruising, lymphadenopathy, frequent infections ENDOCRINE: Absent: unexplained weight gain, unexplained weight loss, heat intolerance, cold intolerance NEUROLOGIC: Absent: headache, focal weakness or paresthesias, dizziness, unsteady gait, seizure, mental status changes, bladder or bowel incontinence PSYCHIATRIC: Absent: anxiety, depression, suicidal or homicidal ideation, hallucinations. PHYSICAL EXAMINATION Vital Signs - 24 hr 11/23/19 11/23/19 11/23/19 17:15 18:44 20:23 Temperature 99.7 F H 100.0 F H 97.8 F Pulse Rate 135 H Pulse Rate [ 106 H Apical] Pulse Rate [ 94 H Right Brachial] Respiratory 18 14 Rate Blood Pressure 188/123 H Blood Pressure 172/116 H 164/110 H [Right Arm] O2 Sat by Pulse 98 100 Oximetry (%) 11/23/19 23:15 Temperature Pulse Rate Pulse Rate [ 117 H Apical] Pulse Rate [ 117 H Right Brachial] Respiratory 18 Rate Blood Pressure Blood Pressure 168/117 H [Right Arm] O2 Sat by Pulse 100 Oximetry (%) GENERAL: Awake, alert, and fully oriented, in no acute distress. HEAD: Normal with no signs of trauma. EYES: Pupils equal, round and reactive to light, extraocular movements intact, sclera anicteric, conjunctiva clear. EARS, NOSE, THROAT: Oropharynx clear without exudates. Moist mucous membranes. NECK: No JVD, or masses. LUNGS: Breath sounds equal, clear to auscultation bilaterally. No wheezes, and no crackles. No accessory muscle use. HEART: Regular rate and rhythm, normal S1 and S2 without murmur, rub or gallop. ABDOMEN: Soft, nontender, not distended, normoactive bowel sounds, no guarding, no rebound, no masses. MUSCULOSKELETAL: Normal range of motion at all joints. No bony deformities or tenderness. No CVA tenderness. UPPER EXTREMITIES: 2+ pulses, warm, well-perfused. No cyanosis. No peripheral edema. LOWER EXTREMITIES: 2+ pulses, warm, well-perfused. No calf tenderness. No peripheral edema. NEUROLOGICAL: Cranial nerves II-XII intact. Normal speech. PSYCHIATRIC: Cooperative. Good eye contact. Appropriate mood and affect. SKIN: Warm, dry, normal turgor, no rashes or lesions noted. Laboratory Results - last 24 hr 11/23/19 11/23/19 11/23/19 17:45 17:45 17:45 WBC 8.2 RBC 4.03 Hgb 11.6 L Hct 34.9 L MCV 86.6 MCH 28.8 MCHC 33.3 RDW 13.3 Plt Count 178 D MPV 8.7 Absolute Neuts (auto) 6.6 Neutrophils % 79.9 Lymphocytes % 14.7 D Monocytes % 4.2 Eosinophils % 0.6 Basophils % 0.6 Nucleated RBC % 0 PT with INR INR Sodium 138 Potassium 4.1 Chloride 106 Carbon Dioxide 16 L Anion Gap 16 BUN 69.5 H Creatinine 13.9 H* Est GFR (CKD-EPI)AfAm 4.94 Est GFR (CKD-EPI)NonAf 4.26 Random Glucose 89 Calcium 9.6 Total Bilirubin 0.8 AST 5 L ALT 11 L Alkaline Phosphatase 111 Creatine Kinase 106 Troponin I < 0.02 Total Protein 8.2 Albumin 4.1 Lipase 314 Urine Color Yellow Urine Appearance Clear Urine pH 6.5 D Ur Specific [place] 1.014 Urine Protein 4+ H Urine Glucose (UA) Trace Urine Ketones Trace H Urine Blood 1+ H Urine Nitrite Negative Urine Bilirubin Negative Urine Urobilinogen 0.2 Ur Leukocyte Esterase Negative Urine WBC (Auto) 8 Urine RBC (Auto) 17 Urine Casts (Auto) 0 U Epithel Cells (Auto) 11 Urine Bacteria (Auto) 5 11/23/19 18:30 WBC RBC Hgb Hct MCV MCH MCHC RDW Plt Count MPV Absolute Neuts (auto) Neutrophils % Lymphocytes % Monocytes % Eosinophils % Basophils % Nucleated RBC % PT with INR 11.70 INR 0.99 Sodium Potassium Chloride Carbon Dioxide Anion Gap BUN Creatinine Est GFR (CKD-EPI)AfAm Est GFR (CKD-EPI)NonAf Random Glucose Calcium Total Bilirubin AST ALT Alkaline Phosphatase Creatine Kinase Troponin I Total Protein Albumin Lipase Urine Color Urine Appearance Urine pH Ur Specific [place] Urine Protein Urine Glucose (UA) Urine Ketones Urine Blood Urine Nitrite Urine Bilirubin Urine Urobilinogen Ur Leukocyte Esterase Urine WBC (Auto) Urine RBC (Auto) Urine Casts (Auto) U Epithel Cells (Auto) Urine Bacteria (Auto) ASSESSMENT/PLAN: 29 y.o. M PMHx ESRD (HD sat/tues), HTN, Hep B, FSGS. Presenting with nausea and vomiting for the past 3-4 days. # ESRD associated with Nausea & Vomiting - Likely secondary to missed dialysis session - Nephrology consult (Dr. Frances) - Dialysis in the morning per nephro - Zofran 4mg Q6 - Patient using PD in neck and stomach - May be candidate for A/V fistula - Consult vascular (Dr. Tripp) - UA shows 4+ protein, 1+ blood, trace ketones - UA with morning labs ordered # HTN Urgency - Given labetalol 20mg x2 in ED - Given Norvasc 5mg in ED, will continue home dose 5mg daily - Trops negative x1, will repeat with AM labs - EKG shows now new changes, will repeat in the morning - Tachycardic on presentation but has since resolved # Hepatitis B - Postive Hep B core antigen in 2018 - Hep B panel ordered # Anemia - Likely secondary to ESRD - Hgb 11.6, Hct 34.9 - Iron studies, will f/u # Covid r/o - Covid PCR Ordered - PCR ordered due to geographic location of pandemic - Placed in isolation precautions # FEN - Sodium controlled diet # DVT Prophylaxis - Early Ambulation - B/L SCD's placed - Heparin 5000 TID # 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 Visit type - Emergency Visit Emergency Visit: No - New Patient This patient is new to me today: Yes Date on this admission: 11/27/19 - Critical Care Critical Care patient: No ATTENDING PHYSICIAN STATEMENT I saw and evaluated the patient. I reviewed the resident's note and discussed the case with the resident. I agree with the resident's findings and plan as documented. SUBJECTIVE: OBJECTIVE: ASSESSMENT AND PLAN:
[2019-11-24 06:26] LABS: HEMATOCRIT 32.2 % (35.4-49); MCH 29.2 pg (25.7-33.7); MCHC 34.1 g/dl (32.0-35.9); MEAN CELL VOLUME 85.5 fl (80-96); MEAN PLT VOLUME 8.5 fl (7.5-11.1); PLATELET COUNT 166 K/MM3 (134-434); RBC 3.76 M/mm3 (4.00-5.60); RDW 13.3 % (11.9-15.9); WHITE BLOOD COUNT 7.2 K/mm3 (4.0-10.0)
[2019-11-24] MEDS ORDERED: SODIUM CHLORIDE 250 ML IV PRN (06:46)
[2019-11-24 06:51] LABS: IRON SERUM 124 ug/dL (50-175); TOTAL IRON BINDING CAPACITY 272 ug/dL (250-450)
[2019-11-24 06:52] LABS: ANION GAP 16 MMOL/L (8-16); BLOOD UREA NITROGEN 73.9 mg/dL (7-18); CALCIUM 9.3 mg/dL (8.5-10.1); CHLORIDE 104 mmol/L (98-107); CO2 17 mmol/L (21-32); GLUCOSE,RANDOM 83 mg/dL (74-106); MAGNESIUM 2.6 mg/dL (1.8-2.4); POTASSIUM 4.1 mmol/L (3.5-5.1); SODIUM 137 mmol/L (136-145)
[2019-11-24] MEDS: HEPARIN NA (PORCINE) 5,000 UNITS/ML 1ML VIAL SQ SCH ×3 (06:52→22:10)
[2019-11-24] MEDS ORDERED: HEPARIN NA (PORCINE) 5,000 UNITS/ML 1ML VIAL ONE ×2 (06:53→14:42)
[2019-11-24 07:17] LABS: CREATININE 14.5 mg/dL (0.55-1.3); PHOSPHOROUS 9.2 mg/dL (2.5-4.9)
[2019-11-24] MEDS ORDERED: amLODIPine BESYLATE 5 MG TABLET (FP) ONE (10:18)
[2019-11-24] MEDS: amLODIPine BESYLATE 5 MG TABLET (FP) PO SCH (10:18)
[2019-11-24] MEDS ORDERED: hydrALAZINE HCL 10 MG TABLET PO ONE (10:29)
--- NOTE | 2019-11-24 10:38 | PN ---
Physical Exam: SUBJECTIVE: Patient seen and examined. Patient diagnosed with ESRD 1.5 years ago after he developed a rash and was being treated for possible syphilis/STD. Routine blood work during syphilis workup showed renal failure. No one else in family has renal failure or CKD per patient. Patient previously on peritoneal dialysis but was stopped secondary to infection (dialysis catheter was on abdomen, then on neck but removed due to recurrent infections). He then went on dialysis via right dialysis catheter on [facility] schedule at [facility]. States dialysis always made him feel weak, lethargic and with episodes of vomiting post dialysis. He also had issue of the fact that he did not produce urine while on dialysis. He decided at one point not to undergo dialysis because of the adverse affects, feelings of weakness, nausea/vomiting and malaise that occurred after dialysis. He states that he know that stopping dialysis altogether will cause him to and he was ok with dying at that time. His family urged him to continue dialysis. He was then seen by psychlogist/psychilatrist and patient decided on dialysis only twice per week so long as no more than 1/2 liter is removed. He wants to be on a kidney transplant list but does not have [place] citizen ship to do so. He was born in [place]. He does not want an AV fistula at this time, but willing to speak to vascular in case he changes his mind down the road. He is insured, has [employer]. States compliance with his medications. OBJECTIVE: bp 192/132 at rest, heart rate 119. ekg sinus tach 112 patient denies chest pain, denies shortness of breath Patient is a 29 y.o. M PMHx ESRD, HTN, Hep B, recently diagnosed history of syphilis (s/p treatment w/penicillin) . Patient states he has been having abdominal pain with nausea and vomiting for the past 3-4 days. Has had 8 episodes a day NBNB mainly white in color. He goes to [facility] on [facility] for hemodialysis on Tuesdays and Saturdays. Last full dialysis was Thursday. echo ordered and pending. covid 19 pending #hypertensive emergency #ESRD #sinus tachycardia #syphilis #hepatitis B Vital Signs Period Temp Pulse Resp BP Sys/Stover Pulse Ox Last 24 Hr 97.8 F-100.0 F 94-135 14-18 138-188/95-123 98-100 GENERAL: The patient is awake, alert, and fully oriented, in no acute distress. HEAD: Normal with no signs of trauma. EYES: PERRL, extraocular movements intact, sclera anicteric, conjunctiva clear. No ptosis. ENT: Ears normal, nares patent, oropharynx clear without exudates, moist mucous membranes. NECK: Trachea midline, full range of motion, supple. evidence of surgical scar well healed LUNGS: Breath sounds equal, clear to auscultation bilaterally, no wheezes HEART: Regular rate and rhythm, S1, S2 without murmur, rub or gallop. ABDOMEN: Soft, nontender, nondistended, normoactive bowel sounds EXTREMITIES: no edema. NEUROLOGICAL: Normal speech, gait not observed. PSYCH: Normal mood, normal affect. SKIN: Warm, dry, normal turgor, no rashes or lesions noted Laboratory Results - last 24 hr 11/23/19 11/23/19 11/23/19 17:45 17:45 17:45 WBC 8.2 RBC 4.03 Hgb 11.6 L Hct 34.9 L MCV 86.6 MCH 28.8 MCHC 33.3 RDW 13.3 Plt Count 178 D MPV 8.7 Absolute Neuts (auto) 6.6 Neutrophils % 79.9 Lymphocytes % 14.7 D Monocytes % 4.2 Eosinophils % 0.6 Basophils % 0.6 Nucleated RBC % 0 PT with INR INR Sodium 138 Potassium 4.1 Chloride 106 Carbon Dioxide 16 L Anion Gap 16 BUN 69.5 H Creatinine 13.9 H* Est GFR (CKD-EPI)AfAm 4.94 Est GFR (CKD-EPI)NonAf 4.26 Random Glucose 89 Calcium 9.6 Phosphorus Magnesium Iron TIBC Iron Saturation Unsaturated IBC Total Bilirubin 0.8 AST 5 L ALT 11 L Alkaline Phosphatase 111 Creatine Kinase 106 Troponin I < 0.02 Total Protein 8.2 Albumin 4.1 Lipase 314 Urine Color Yellow Urine Appearance Clear Urine pH 6.5 D Ur Specific Ivor 1.014 Urine Protein 4+ H Urine Glucose (UA) Trace Urine Ketones Trace H Urine Blood 1+ H Urine Nitrite Negative Urine Bilirubin Negative Urine Urobilinogen 0.2 Ur Leukocyte Esterase Negative Urine WBC (Auto) 8 Urine RBC (Auto) 17 Urine Casts (Auto) 0 U Epithel Cells (Auto) 11 Urine Bacteria (Auto) 5 11/23/19 11/24/19 11/24/19 18:30 05:30 05:30 WBC 7.2 RBC 3.76 L Hgb 11.0 L Hct 32.2 L MCV 85.5 MCH 29.2 MCHC 34.1 RDW 13.3 Plt Count 166 MPV 8.5 Absolute Neuts (auto) Neutrophils % Lymphocytes % Monocytes % Eosinophils % Basophils % Nucleated RBC % PT with INR 11.70 INR 0.99 Sodium 137 Potassium 4.1 Chloride 104 Carbon Dioxide 17 L Anion Gap 16 BUN 73.9 H Creatinine 14.5 H* Est GFR (CKD-EPI)AfAm 4.69 Est GFR (CKD-EPI)NonAf 4.05 Random Glucose 83 Calcium 9.3 Phosphorus 9.2 H* Magnesium 2.6 H Iron TIBC Iron Saturation Unsaturated IBC Total Bilirubin AST ALT Alkaline Phosphatase Creatine Kinase Troponin I < 0.02 Total Protein Albumin Lipase Urine Color Urine Appearance Urine pH Ur Specific Ivor Urine Protein Urine Glucose (UA) Urine Ketones Urine Blood Urine Nitrite Urine Bilirubin Urine Urobilinogen Ur Leukocyte Esterase Urine WBC (Auto) Urine RBC (Auto) Urine Casts (Auto) U Epithel Cells (Auto) Urine Bacteria (Auto) 11/24/19 05:30 WBC RBC Hgb Hct MCV MCH MCHC RDW Plt Count MPV Absolute Neuts (auto) Neutrophils % Lymphocytes % Monocytes % Eosinophils % Basophils % Nucleated RBC % PT with INR INR Sodium Potassium Chloride Carbon Dioxide Anion Gap BUN Creatinine Est GFR (CKD-EPI)AfAm Est GFR (CKD-EPI)NonAf Random Glucose Calcium Phosphorus Magnesium Iron 124 TIBC 272 Iron Saturation 45 H Unsaturated IBC 148 L Total Bilirubin AST ALT Alkaline Phosphatase Creatine Kinase Troponin I Total Protein Albumin Lipase Urine Color Urine Appearance Urine pH Ur Specific Ivor Urine Protein Urine Glucose (UA) Urine Ketones Urine Blood Urine Nitrite Urine Bilirubin Urine Urobilinogen Ur Leukocyte Esterase Urine WBC (Auto) Urine RBC (Auto) Urine Casts (Auto) U Epithel Cells (Auto) Urine Bacteria (Auto) Active Medications Generic Name Dose Route Start Last Admin Trade Name Freq PRN Reason Stop Dose Admin Amlodipine Besylate 5 mg 11/24/19 10:00 11/24/19 10:18 Norvasc - PO 5 mg DAILY LORIE Administration Heparin Sodium (Porcine) 5,000 unit 11/24/19 06:00 11/24/19 06:52 Heparin - SQ 5,000 unit TID LORIE Administration Hydralazine HCl 10 mg 11/24/19 14:00 Apresoline - PO TID LORIE Sodium Chloride 250 mls @ 3,000 mls/hr 11/24/19 06:46 Normal Saline - IV 11/25/19 06:46 PRN PRN Hypotension during Dialysis Ondansetron HCl 4 mg 11/24/19 00:44 Zofran Injection IVPUSH Q6H PRN NAUSEA ASSESSMENT/PLAN: Problem List - Problems (1) Hypertensive emergency Assessment/Plan: bp 191/130s during exam, worsening renal failure. heart rate 120 (sinus tach per ekg) denies chest pain, on room air, no shortness of breath on norvasc 5mg at home, states compliance with home meds will add echo add hydralazine 10 tid for hypertensive urgency for dialysis today Code(s): I16.1 - HYPERTENSIVE EMERGENCY (2) Renal failure Assessment/Plan: patient missed his last scheduled dialysis secondary to n/v malaise. presents with creatinine of 14.5 for dialysis today via right subclavian dialysis cath. renal following patient follows at [facility] for dialysis he is not willing to undergo an AV fistula at this time, but may consider in future Code(s): N19 - UNSPECIFIED KIDNEY FAILURE (3) ESRD (end stage renal disease) Assessment/Plan: receives dialysis , Saturdays (twice weekly) at [facility]. creat 14.5 on admission for dialysis today renal following Code(s): N18.6 - END STAGE RENAL DISEASE (4) Hypertension Code(s): I10 - ESSENTIAL (PRIMARY) HYPERTENSION (5) Acute hepatitis B Assessment/Plan: serology pending Code(s): B16.9 - ACUTE HEPATITIS B W/O DELTA-AGENT AND WITHOUT HEPATIC COMA (6) Syphilis Assessment/Plan: treated with penicillin 2017 Code(s): A53.9 - SYPHILIS, UNSPECIFIED (7) Sinus tachycardia Assessment/Plan: for echo today, ekg confirms ST Code(s): R00.0 - TACHYCARDIA, UNSPECIFIED (8) DVT prophylaxis Assessment/Plan: heparin tid Code(s): Z29.9 - ENCOUNTER FOR PROPHYLACTIC MEASURES, UNSPECIFIED Visit type - Emergency Visit Emergency Visit: Yes ED Registration Date: 11/23/19 Care time: The patient presented to the Emergency Department on the above date and was hospitalized for further evaluation of their emergent condition. - New Patient This patient is new to me today: Yes Date on this admission: 11/24/19 - Critical Care Critical Care patient: No - Discharge Referral Referred to [facility] No
--- NOTE | 2019-11-24 11:49 | EKG ---
Test Reason : Blood Pressure : / mmHG Vent. Rate : 105 BPM Atrial Rate : 105 BPM P-R Int : 148 ms QRS Dur : 068 ms QT Int : 342 ms P-R-T Axes : 072 -18 043 degrees QTc Int : 452 ms SINUS TACHYCARDIA OTHERWISE NORMAL ECG WHEN COMPARED WITH ECG OF 23-NOV-2019 18:05, NO SIGNIFICANT CHANGE WAS FOUND Confirmed by YESSI CHIANG MD ([id number]) on 11/24/2019 11:49:07 AM Referred By: Confirmed By:YESSI CHIANG MD
--- NOTE | 2019-11-24 11:53 | EKG ---
Test Reason : Blood Pressure : / mmHG Vent. Rate : 112 BPM Atrial Rate : 112 BPM P-R Int : 136 ms QRS Dur : 066 ms QT Int : 330 ms P-R-T Axes : 073 003 051 degrees QTc Int : 450 ms SINUS TACHYCARDIA OTHERWISE NORMAL ECG WHEN COMPARED WITH ECG OF 01-AUG-2017 08:20, NO SIGNIFICANT CHANGE WAS FOUND Confirmed by YESSI CHIANG MD ([id number]) on 11/24/2019 11:53:06 AM Referred By: Confirmed By:YESSI CHIANG MD
[2019-11-24] MEDS ORDERED: PT OWN MED DRAWER 7, Y5N ONE (12:30)
--- NOTE | 2019-11-24 12:54 | CON.NEP ---
Consult Consult Specialty:: Nephrology Referred by:: ED Reason for Consultation:: ESRD on HD - History of Present Illness Chief Complaint: Nausea and vomiting History of Present Illness: This is a 29 year old male with history of ESRD on HD (2x weekly Tues/Thu) secondary to FSGS, hypertension, hepatitis B who presented with 4 day history of nausea, vomiting diarrhea and anorexia. Seen and examined at the bedside. Last dialysis was Thursday, missed Thursday session. Nausea is somewhat better now. No abdominal pain. No cough, fever or chills. No chest pain or palpitations. Still makes a good amount of urine. + sick contact (sister also has N/V but no diarrhea) - History Source History Provided By: Patient Limitations to Obtaining History: No Limitations - Past Medical History Cardio/Vascular: Yes: HTN Renal/: Yes: Renal Failure, Hemodialysis - Alcohol/Substance Use Hx Alcohol Use: No - Smoking History Smoking history: Never smoked Have you smoked in the past 12 months: No Home Medications - Allergies Allergies/Adverse Reactions: Allergies Allergy/AdvReac Type Severity Reaction Status Date / Time shellfish derived Allergy Unknown Verified 11/23/19 18:05 vancomycin Allergy Verified 11/23/19 18:05 - Home Medications Home Medications: Ambulatory Orders Losartan Potassium 50 mg PO DAILY #30 tablet 08/05/17 Family Medical History Family History: Unremarkable Review of Systems - Review of Systems Constitutional: reports: No Symptoms Eyes: reports: No Symptoms HENT: reports: No Symptoms Neck: reports: No Symptoms Cardiovascular: reports: No Symptoms Respiratory: reports: No Symptoms Gastrointestinal: reports: Diarrhea, Nausea, Vomiting Genitourinary: reports: No Symptoms Musculoskeletal: reports: No Symptoms Neurological: reports: No Symptoms Endocrine: reports: No Symptoms Nephrology Consult - Height Height: 5 ft 5 in - Weight Weight: 56.699 kg - BMI Body Mass Index (BMI): 20.7 - Lab Results CBC,BMP: CBC, BMP 11/24/19 05:30 11/24/19 05:30 Anion Gap: Anion Gap Anion Gap 16 MMOL/L (8-16) 11/24/19 05:30 - Imaging Chest X-ray: Report Reviewed, Image Reviewed Cat Scan: Report Reviewed - Physical Examination Vital Signs: Vital Signs Temperature 98.4 F 11/24/19 08:02 Pulse Rate 106 H 11/24/19 12:38 Respiratory Rate 18 11/24/19 12:38 Blood Pressure 180/122 H 11/24/19 12:38 O2 Sat by Pulse Oximetry (%) 99 11/24/19 12:38 Constitutional: Yes: Well Nourished, No Distress, Calm Eyes: Yes: Conjunctiva Clear HENT: Yes: Atraumatic Neck: Yes: Supple Cardiovascular: Yes: Regular Rate and Rhythm. No: Murmur, Rub Respiratory: Yes: Regular, CTA Bilaterally. No: Rales, Rhonchi Gastrointestinal: Yes: Soft. No: Tenderness Renal/: No: Bladder Distention, CVA Tenderness - Left, CVA Tenderness - Right Access for Hemodialysis: Permacath Extremities: No: Cold, Cool, Cyanosis Edema: No Neurological: Yes: Alert, Oriented Assessment/Plan 29 year old male with history of ESRD on HD (2x weekly Tues/Sat) secondary to FSGS, hypertension, hepatitis B who presented with 4 day history of nausea, vomiting diarrhea and anorexia. 1. ESRD on HD (Twice weekly) 2. Nausea/Vomiting/Diarrhea 3. Hypertension 4. Hx of Hepatitis B? Will arrange for dialysis as an inpatient (likely will be Thursday morning due to staffing) Renal diet as tolerated Give sodium bicarbonate 1300mg x 1 CT of the abdomen showed no overt pathology f/u blood/urine cultures and COVID serologies BP is very high, can resume Losartan Continue Hydralazine as ordered low sodium diet f/u hepatitis serologies supportive care if symptoms resolved can anticipate discharge after dialysis tomorrow. Thank you Jd Frances DO
[2019-11-24] MEDS ORDERED: SODIUM BICARBONATE 650 MG TABLET PO ONE (12:59)
--- NOTE | 2019-11-24 13:10 | CON.CARD ---
Consult Consult Specialty:: cardiology Reason for Consultation:: CHF; HTN; ESRD - History of Present Illness Chief Complaint: Pt A&Ox3; no longer has diarrhea or nausea; feels weak, and easily dyspneic History of Present Illness: Mr. Mckay Kent is a 29 year old man (b. [place]) with a PM history of ESRD on HD (2x weekly Tues/Sat) secondary to FSGS, hypertension, hepatitis B, anemia, who presented with 4 day history of nausea, vomiting diarrhea and anorexia. Seen and examined at the bedside. Last dialysis was Thursday, missed Thursday session. Nausea is somewhat better now. No abdominal pain. No cough, fever or chills. No chest pain or palpitations. Still makes a good amount of urine. + sick contact (he thinks is may have been something he ate; his sister also has N/V but no diarrhea; he has not had similar symptoms in years). No famiily hx CAD/CVA. Quit cigarettes when he found he had renal disease (18 months ago); never smoked more than a few cigarettes a week. OccaSional glass of alcohol. Rare marijuana, and none foe years. No other substance abuse. Used to run and go to the gym, but has lost about 30 lbs in the past year (eats well one day, then poorly the next). Now has become weak and easily dyspneic. Pt says he has been compliant to medications, but is reluctant to have hemodialysis, and limits it to twice a week, 500 ml removed. Has not had dialysis in a week. (Used to have peritoneal dialysis, but became infected). ?anxiety/depression - History Source History Provided By: Patient, Medical Record Limitations to Obtaining History: No Limitations - Past Medical History Cardio/Vascular: Yes: CHF, HTN, Hyperlipdemia Hepatobiliary: Yes: Hepatitis B Renal/: Yes: Renal Failure, Hemodialysis Psych: Yes: Anxiety, Depression - Alcohol/Substance Use Hx Alcohol Use: Yes (rare; never was a heavy drinker) History of Substance Use: reports: Marijuana (tried it once or twice; none in years) - Smoking History Smoking history: Never smoked Have you smoked in the past 12 months: No - Social History Place of : Other Home Medications - Allergies Allergies/Adverse Reactions: Allergies Allergy/AdvReac Type Severity Reaction Status Date / Time shellfish derived Allergy Unknown Verified 11/23/19 18:05 vancomycin Allergy Verified 11/23/19 18:05 - Home Medications Home Medications: Ambulatory Orders Losartan Potassium 50 mg PO DAILY #30 tablet 08/05/17 Family Medical History Family History: Denies Review of Systems - Review of Systems Constitutional: reports: Loss of Appetite, Weakness Eyes: reports: No Symptoms HENT: reports: No Symptoms Neck: reports: No Symptoms Cardiovascular: reports: Shortness of Breath Respiratory: reports: Exercise Intolerance, SOB on Exertion Gastrointestinal: reports: Diarrhea, Nausea (only in the past few days) Musculoskeletal: reports: Muscle Weakness Integumentary: reports: No Symptoms Neurological: reports: Weakness Endocrine: reports: No Symptoms Hematology/Lymphatic: reports: No Symptoms Psychiatric: reports: Anxiety, Depression - Risk Factors Known Risk Factors: Yes: Hypertension, Physical Inactivity, Other (ESRD) Vital Signs: Vital Signs Temperature 98.4 F 11/24/19 08:02 Pulse Rate 106 H 11/24/19 12:38 Respiratory Rate 18 11/24/19 12:38 Blood Pressure 180/122 H 11/24/19 12:38 O2 Sat by Pulse Oximetry (%) 99 11/24/19 12:38 Abnormal Lab Results 11/23/19 11/23/19 11/23/19 17:45 17:45 17:45 RBC Hgb 11.6 L Hct 34.9 L Carbon Dioxide 16 L BUN 69.5 H Creatinine 13.9 H* Phosphorus Magnesium Iron Saturation Unsaturated IBC AST 5 L ALT 11 L Urine Protein 4+ H Urine Ketones Trace H Urine Blood 1+ H 11/24/19 11/24/19 11/24/19 05:30 05:30 05:30 RBC 3.76 L Hgb 11.0 L Hct 32.2 L Carbon Dioxide 17 L BUN 73.9 H Creatinine 14.5 H* Phosphorus 9.2 H* Magnesium 2.6 H Iron Saturation 45 H Unsaturated IBC 148 L AST ALT Urine Protein Urine Ketones Urine Blood Constitutional: Yes: Anxious, Thin Eyes: Yes: WNL HENT: Yes: WNL Neck: Yes: WNL Respiratory: Yes: SOB on Exertion Gastrointestinal: Yes: Soft. No: Tenderness Renal/: No: Anuria Cardiovascular: Yes: Regular Rate and Rhythm JVD: No Carotid Bruit: No PMI: Non-Displaced Heart Sounds: Yes: S1, S2, S4 Murmur: Yes: Systolic Murmur, Grade 2 Musculoskeletal: Yes: Muscle Weakness Extremities: Yes: Cool Edema: No Peripheral Pulses WNL: Yes Integumentary: Yes: Tattoos Neurological: Yes: Alert, Oriented, Weakness Psychiatric: Yes: Alert, Oriented, Other - Other Data Labs, Other Data: CBC, BMP 11/24/19 05:30 11/24/19 05:30 INR, PTT INR 0.99 (0.83-1.09) 11/23/19 18:30 Troponin, BNP 11/23/19 11/24/19 17:45 05:30 Troponin I < 0.02 < 0.02 Troponin, BNP 11/23/19 11/24/19 17:45 05:30 Troponin I < 0.02 < 0.02 Abnormal Lab Results 11/23/19 11/23/19 11/23/19 17:45 17:45 17:45 RBC Hgb 11.6 L Hct 34.9 L Carbon Dioxide 16 L BUN 69.5 H Creatinine 13.9 H* Phosphorus Magnesium Iron Saturation Unsaturated IBC AST 5 L ALT 11 L Urine Protein 4+ H Urine Ketones Trace H Urine Blood 1+ H 11/24/19 11/24/19 11/24/19 05:30 05:30 05:30 RBC 3.76 L Hgb 11.0 L Hct 32.2 L Carbon Dioxide 17 L BUN 73.9 H Creatinine 14.5 H* Phosphorus 9.2 H* Magnesium 2.6 H Iron Saturation 45 H Unsaturated IBC 148 L AST ALT Urine Protein Urine Ketones Urine Blood Echo: Pending Imaging - Results Chest X-ray: Image Reviewed EKG: Image Reviewed Assessment/Plan ESRD (FSGS); on hemodialysis Uncontrolled HTN sinus tachycardia (O2 sat 100% on RA) hx Hepatitis B Hemodialysis per telephonic nurse case manager. ECHO for LVEF, chamber sizes. Serial BP checks; now started on hydralazine; also on amlodiine. losartan. TNI < 0.02 x 2; EKG sinus tach (otherwise, normal EKG). TSH Lipid panel Significant bilateral renal atrophy on CT. Ideally, pt should be on transplant list.
[2019-11-24] MEDS ORDERED: LOSARTAN POTASSIUM 50 MG TABLET (FP) ONE (13:18)
[2019-11-24] MEDS: LOSARTAN POTASSIUM 50 MG TABLET (FP) PO SCH (13:33)
[2019-11-24 14:34] LABS: ANISOCYTOSIS 1+; MACROCYTOSIS 0; PLATELET ESTIMATE NORMAL
[2019-11-24 14:37] LABS: ALBUMIN 3.8 g/dl (3.4-5.0); ALK PHOS 103 U/L (45-117); BILIRUBIN,TOTAL 0.7 mg/dL (0.2-1); SGOT/AST 5 U/L (15-37); SGPT/ALT 12 U/L (13-61); TOT PROT 7.7 g/dl (6.4-8.2)
[2019-11-24] MEDS: hydrALAZINE HCL 10 MG TABLET PO SCH ×2 (14:42→22:11)
--- NOTE | 2019-11-24 15:14 | PN ---
Progress Note (short form) - Note Progress Note: Vascular Surgery: Called to see patient for AV fistula access. The patient states that he isn't interested in having a fistula creation. He usually lives in [place] but is staying with family in [place]. In the past he has tried dialysis via a PD catheter, currently he has a PC on the right upper chest. This catheter has been in place for approximately a year and a half. He has had discussion with his regular dialysis doctors in the past regarding fistula placement and isn't interested. Please reconsult as needed for any further vascular needs. D/w / Qasim and Dr. Frances.
[2019-11-24] MEDS ORDERED: ONDANSETRON *ODT* 4 MG TABLET ONE (16:09)
[2019-11-24] MEDS: ONDANSETRON 4 MG/2 ML VIAL IVPUSH PRN (16:12)
--- NOTE | 2019-11-24 16:23 | ECHO ---
Name: JARRED GUEVARA JERO Exam:Adult Echocardiogram Study Date: 11/24/2019 01:59 PM Age: 29 yrs Reason For Study: HTN Height: 65 in Weight: 125 lb BSA: 1.6 m2 MMode/2D Measurements & Calculations IVSd: 1.1 cm Ao root diam: 2.5 cm LVIDd: 4.1 cm LA dimension: 3.1 cm LVIDs: 2.5 cm LVPWd: 1.1 cm EDV(Teich): 73.6 ml LVOT diam: 2.0 cm ESV(Teich): 23.2 ml LAV (MOD-bp): 43.5 ml Doppler Measurements & Calculations MV E max cristian: 159.5 cm/sec Ao V2 max: 170.4 cm/sec MV A max cristian: 46.9 cm/sec Ao max P.6 mmHg MV E/A: 3.4 MV dec time: 0.12 sec [place](V,D): 2.6 cm2 LV V1 max P.1 mmHg TR max cristian: 259.9 cm/sec LV V1 max: 142.6 cm/sec TR max P.1 mmHg PA V2 max: 135.7 cm/sec Med Peak E' Cristian: 14.5 cm/sec PA max P.4 mmHg Med E/e': 11.0 Lat Peak E' Cristian: 12.3 cm/sec Lat E/e': 13.0 Procedure A complete two-dimensional transthoracic echocardiogram was performed (2D, M-mode, Doppler and color flow Doppler). Left Ventricle The left ventricular size, thickness and function are normal. Ejection Fraction = 60-65%. The left ve ntricular wall motion is normal. Right Ventricle The right ventricle is normal in size and function. Atria Normal left and right atrial size and function. Mitral Valve There is no mitral regurgitation noted. Tricuspid Valve There is trace tricuspid regurgitation. Right ventricular systolic pressure is normal. Aortic Valve The aortic valve is trileaflet. No hemodynamically significant valvular aortic stenosis. No aortic regurgitation is present. Pulmonic Valve There is no pulmonic valvular regurgitation. Great Vessels The aortic root is normal size. Pericardium/Pleura There is no pericardial effusion. Interpretation Summary The left ventricular size, thickness and function are normal The right ventricle is normal in size and function. There is trace tricuspid regurgitation. MD Isreal Clark 11/24/2019 04:23 PM
[2019-11-25] MEDS: HEPARIN NA (PORCINE) 5,000 UNITS/ML 1ML VIAL SQ SCH ×3 (05:09→23:03)
[2019-11-25] MEDS: hydrALAZINE HCL 10 MG TABLET PO SCH ×3 (05:09→23:03)
[2019-11-25] MEDS ORDERED: SEVELAMER CARBONATE 800 MG TAB (FP) PO SCH (08:00)
[2019-11-25 08:15] LABS: BASO % 0.8 % (0-2.0); EOS % 3.7 % (0-4.5); HEMATOCRIT 33.4 % (35.4-49); HEMOGLOBIN 11.2 GM/dL (11.7-16.9); LYMPH % 27.8 % (8-40); MCH 28.6 pg (25.7-33.7); MCHC 33.4 g/dl (32.0-35.9); MEAN CELL VOLUME 85.4 fl (80-96); MEAN PLT VOLUME 8.6 fl (7.5-11.1); NEUT % 60.7 % (42.8-82.8); PLATELET COUNT 174 K/MM3 (134-434); RBC 3.92 M/mm3 (4.00-5.60); RDW 13.5 % (11.9-15.9); WHITE BLOOD COUNT 6.7 K/mm3 (4.0-10.0)
[2019-11-25] MEDS: LOSARTAN POTASSIUM 50 MG TABLET (FP) PO SCH ×2 (08:21→09:12)
[2019-11-25] MEDS: amLODIPine BESYLATE 5 MG TABLET (FP) PO SCH ×2 (08:21→09:12)
[2019-11-25 09:14] LABS: ALBUMIN 3.6 g/dl (3.4-5.0); BILIRUBIN,TOTAL 0.6 mg/dL (0.2-1); CALCIUM 8.9 mg/dL (8.5-10.1); MAGNESIUM 2.7 mg/dL (1.8-2.4); POTASSIUM 4.2 mmol/L (3.5-5.1); TOT PROT 7.5 g/dl (6.4-8.2)
--- NOTE | 2019-11-25 09:48 | PN ---
Progress Note, Physician History of Present Illness: Mr. Mckay Kent is a 29 year old man (b. 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 Seen and examined at the bedside. Last dialysis was Thursday, missed Thursday session. Nausea is somewhat better now. No abdominal pain. No cough, fever or chills. No chest pain or palpitations. Still makes a good amount of urine. + sick contact (he thinks is may have been something he ate; his sister also has N/V but no diarrhea; he has not had similar symptoms in years). No famiily hx CAD/CVA. Quit cigarettes when he found he had renal disease (18 months ago); never smoked more than a few cigarettes a week. OccaSional glass of alcohol. Rare marijuana, and none foe years. No other substance abuse. Used to run and go to the gym, but has lost about 30 lbs in the past year (eats well one day, then poorly the next). Now has become weak and easily dyspneic. Pt says he has been compliant to medications, but is reluctant to have hemodialysis, and limits it to twice a week, 500 ml removed. Has not had dialysis in a week. (Used to have peritoneal dialysis, but became infected). - Current Medication List Current Medications: Active Medications Amlodipine Besylate (Norvasc -) 5 mg PO DAILY [facility] Last Admin: 11/25/19 09:12 Dose: Not Given Documented by: Calcium Acetate (Phoslo -) 667 mg PO TIDCM [facility] Heparin Sodium (Porcine) (Heparin -) 5,000 unit SQ TID [facility] Last Admin: 11/25/19 05:09 Dose: 5,000 unit Documented by: Hydralazine HCl (Apresoline -) 10 mg PO TID [facility] Last Admin: 11/25/19 05:09 Dose: 10 mg Documented by: Sodium Chloride (Normal Saline -) 250 mls @ 3,000 mls/hr IV PRN PRN PRN Reason: Hypotension during Dialysis Stop: 11/25/19 06:46 Losartan Potassium (Cozaar -) 50 mg PO DAILY [facility] Last Admin: 11/25/19 09:12 Dose: Not Given Documented by: Ondansetron HCl (Zofran Injection) 4 mg IVPUSH Q6H PRN PRN Reason: NAUSEA Last Admin: 11/24/19 16:12 Dose: 4 mg Documented by: Zinc Acetate/Diphenhydramine (Benadryl 2% Cream) 1 applic TP ONCE ONE Stop: 11/25/19 09:18 - Objective Vital Signs: Vital Signs Temperature 98.3 F 11/25/19 08:00 Pulse Rate 103 H 11/25/19 08:00 Respiratory Rate 18 11/25/19 08:00 Blood Pressure 164/97 11/25/19 08:00 O2 Sat by Pulse Oximetry (%) 97 11/25/19 08:00 Labs: CBC, BMP 11/25/19 07:08 11/25/19 07:08 INR, PTT INR 0.99 (0.83-1.09) 11/23/19 18:30 Assessment/Plan ESRD (FSGS); on hemodialysis Uncontrolled HTN sinus tachycardia (O2 sat 100% on RA) hx Hepatitis B ECHO nl EF 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 Serial BP checks; now started on hydralazine; also increase amlodipine to 10. losartan. TNI < 0.02 x 2; EKG sinus tach (otherwise, normal EKG). TSH Lipid panel Significant bilateral renal atrophy on CT. Ideally, pt should be on transplant list.
[2019-11-25 09:59] LABS: CREATININE 15.5 mg/dL (0.55-1.3)
[2019-11-25 10:00] LABS: PHOSPHOROUS 8.4 mg/dL (2.5-4.9)
[2019-11-25] MEDS: CALCIUM ACETATE 667 MG CAPSULE (FP) PO SCH ×2 (11:47→17:31)
--- NOTE | 2019-11-25 13:59 | PN ---
Progress Note (short form) - Note Progress Note: 1. ESRD on HD (Twice weekly) 2. Nausea/Vomiting/Diarrhea 3. Hypertension 4. Hx of Hepatitis B? Active Medications Amlodipine Besylate (Norvasc -) 5 mg PO DAILY [facility] Last Admin: 11/25/19 09:12 Dose: Not Given Documented by: Calcium Acetate (Phoslo -) 667 mg PO TIDCM [facility] Last Admin: 11/25/19 11:47 Dose: 667 mg Documented by: Heparin Sodium (Porcine) (Heparin -) 5,000 unit SQ TID [facility] Last Admin: 11/25/19 13:30 Dose: 5,000 unit Documented by: Hydralazine HCl (Apresoline -) 10 mg PO TID [facility] Last Admin: 11/25/19 05:09 Dose: 10 mg Documented by: Sodium Chloride (Normal Saline -) 250 mls @ 3,000 mls/hr IV PRN PRN PRN Reason: Hypotension during Dialysis Stop: 11/25/19 06:46 Losartan Potassium (Cozaar -) 50 mg PO DAILY [facility] Last Admin: 11/25/19 09:12 Dose: Not Given Documented by: Ondansetron HCl (Zofran Injection) 4 mg IVPUSH Q6H PRN PRN Reason: NAUSEA Last Admin: 11/24/19 16:12 Dose: 4 mg Documented by: Zinc Acetate/Diphenhydramine (Benadryl 2% Cream) 1 applic TP DAILY [facility] Last Admin: 11/25/19 11:47 Dose: 1 applic Documented by: Last Vital Signs Temp Pulse Resp BP Pulse Ox 97.9 F 90 18 167/90 98 11/25/19 12:00 11/25/19 12:00 11/25/19 12:00 11/25/19 12:00 11/25/19 12:00 Lungs clear Heart reg Abd soft Ext no edema Plan- HD per schedule today
[2019-11-25] MEDS ORDERED: SODIUM CHLORIDE 250 ML IV PRN ×2 (14:58→15:03)
--- NOTE | 2019-11-25 16:28 | DS ---
Physical Exam: SUBJECTIVE: Patient seen and examined. denies any malaise. had mild reaction to sevelamer today that lasted 10 minutes. denies any shortness of breath. had only mild itching of hands and upper back. no wheezing. sevelamer discontinued. Patient had dialysis today. He will need another session of dialysis tomorrow. Patient called his dialysis center and he is scheduled for dialysis at 5a.m tomorrow. Transportation is offered by his home facility. OBJECTIVE: bp 140/100, improved. patient denies chest pain, denies shortness of breath ----- Patient has follow up appt with new PCP Doctor: Dr. Beltran Location: [address] [place] [address] 2nd floor Date/Time: ThursdayNovember 27 at 10:00a.m. --- Patient is a 29 y.o. M PMHx ESRD, HTN, Hep B, recently diagnosed history of syphilis (s/p treatment w/penicillin) . Patient states he has been having abdominal pain with nausea and vomiting for the past 3-4 days. Has had 8 episodes a day NBNB mainly white in color. He goes to [facility] for hemodialysis on Tuesdays and Saturdays. Last full dialysis was today as inpatient. Patient to receive another session of dialysis tomorrow at his home center. echo reviewed, no acute pathology covid 19 negative #hypertensive emergency #ESRD #sinus tachycardia #syphilis #hepatitis B #nausea/vomiting Vital Signs Period Temp Pulse Resp BP Sys/Stover Pulse Ox Last 24 Hr 97.8 F-98.3 F 90-114 16-18 124-177/56-112 97-100 PHYSICAL EXAM GENERAL: The patient is awake, alert, and fully oriented, in no acute distress. HEAD: Normal with no signs of trauma. EYES: PERRL, extraocular movements intact, sclera anicteric, conjunctiva clear. No ptosis. ENT: Ears normal, nares patent, oropharynx clear without exudates, moist mucous membranes. NECK: Trachea midline, full range of motion, supple. evidence of surgical scar well healed LUNGS: Breath sounds equal, clear to auscultation bilaterally, no wheezes HEART: Regular rate and rhythm, S1, S2 without murmur, rub or gallop. ABDOMEN: Soft, nontender, nondistended, normoactive bowel sounds EXTREMITIES: no edema. NEUROLOGICAL: Normal speech, gait not observed. PSYCH: Normal mood, normal affect. SKIN: Warm, dry, normal turgor, no rashes or lesions noted LABS Laboratory Results - last 24 hr 11/23/19 11/24/19 11/24/19 19:30 01:35 05:50 WBC RBC Hgb Hct MCV MCH MCHC RDW Plt Count MPV Absolute Neuts (auto) Neutrophils % Lymphocytes % Monocytes % Eosinophils % Basophils % Nucleated RBC % Sodium Potassium Chloride Carbon Dioxide Anion Gap BUN Creatinine Est GFR (CKD-EPI)AfAm Est GFR (CKD-EPI)NonAf Random Glucose Calcium Phosphorus Magnesium Total Bilirubin AST ALT Alkaline Phosphatase Total Protein Albumin Triglycerides Cholesterol Total LDL Cholesterol HDL Cholesterol TSH Urine Color Cancelled Urine Appearance Cancelled Urine pH Cancelled Ur Specific [place] Cancelled Urine Protein Cancelled Urine Glucose (UA) Cancelled Urine Ketones Cancelled Urine Blood Cancelled Urine Nitrite Cancelled Urine Bilirubin Cancelled Urine Urobilinogen Cancelled Ur Leukocyte Esterase Cancelled Urine WBC (Auto) Cancelled Urine RBC (Auto) Cancelled Urine Casts (Auto) Cancelled U Pathogenic Cast Auto Cancelled U Epithel Cells (Auto) Cancelled U Sm Round Cell (Auto) Cancelled Urine Crystals (Auto) Cancelled Urine Bacteria (Auto) Cancelled Urine Yeast (Auto) Cancelled COVID-19 ([facility]) Not detected Hep A IgM Ab Confirm Negative Hep Bs Antigen Negative Hep B Core IgM Ab Negative Hepatitis C Ab (EIA) <0.1 11/25/19 11/25/19 07:08 07:08 WBC 6.7 RBC 3.92 L Hgb 11.2 L Hct 33.4 L MCV 85.4 MCH 28.6 MCHC 33.4 RDW 13.5 Plt Count 174 MPV 8.6 Absolute Neuts (auto) 4.1 Neutrophils % 60.7 D Lymphocytes % 27.8 D Monocytes % 7.0 Eosinophils % 3.7 D Basophils % 0.8 Nucleated RBC % 0 Sodium 134 L Potassium 4.2 Chloride 102 Carbon Dioxide 19 L Anion Gap 13 BUN 81.0 H Creatinine 15.5 H* Est GFR (CKD-EPI)AfAm 4.33 Est GFR (CKD-EPI)NonAf 3.74 Random Glucose 89 Calcium 8.9 Phosphorus 8.4 H Magnesium 2.7 H Total Bilirubin 0.6 AST 6 L ALT 12 L Alkaline Phosphatase 102 Total Protein 7.5 Albumin 3.6 Triglycerides 118 Cholesterol 201 H Total LDL Cholesterol 118 H HDL Cholesterol 56 TSH 0.25 L Urine Color Urine Appearance Urine pH Ur Specific [place] Urine Protein Urine Glucose (UA) Urine Ketones Urine Blood Urine Nitrite Urine Bilirubin Urine Urobilinogen Ur Leukocyte Esterase Urine WBC (Auto) Urine RBC (Auto) Urine Casts (Auto) U Pathogenic Cast Auto U Epithel Cells (Auto) U Sm Round Cell (Auto) Urine Crystals (Auto) Urine Bacteria (Auto) Urine Yeast (Auto) COVID-19 ([facility]) Hep A IgM Ab Confirm Hep Bs Antigen Hep B Core IgM Ab Hepatitis C Ab (EIA) HOSPITAL COURSE: Date of Admission:11/23/19 Date of Discharge: 11/25/19 Minutes to complete discharge: 60 Discharge Summary Problems reviewed: Yes Reason For Visit: RENAL FAILURE,NAUSEA AND VOMITING,HYPERTENSION Current Active Problems DVT prophylaxis (Acute) ESRD (end stage renal disease) (Acute) Hypertensive emergency (Acute) Renal failure (Acute) Sinus tachycardia (Acute) Hypertension (Chronic) Condition: Improved - Instructions Diet, Activity, Other Instructions: Mr. Mckay Kent: You were admitted on 11/23/2019 for nausea/vomiting, abdominal pain, elevated blood pressure and elevated creatinine. Here are our discharge instructions. NAUSEA/VOMITING: Your abdominal cat scan was normal. Continue your renal diet. ELEVATED CREATININE: You received dialysis on 11/25/2019. Please continue your dialysis tomorrow at [facility]. ELEVATED BLOOD PRESSURE: START Hydralazine 10mg THREE times per day with each meal - THIS IS FOR YOUR BLOOD PRESSURE CONTROL START Losartan 50mg ONCE PER day in the morning - THIS IS FOR YOUR BLOOD PRESSURE CONTROL START Amlodopine 5 mg ONCE PER day in the morning. - THIS IS FOR YOUR BLOOD PRESSURE CONTROL FOLLOW UPS: Since you do not have a PCP, we have assigned one for you as you will need to have your blood pressure checked. You may need to have your blood pressure medications adjusted. YOUR NEW PCP APPOINTMENT: Doctor: Dr. Beltran Location: [address] [place] [address] Date/Time: ThursdayNovember 27 at 10:00a.m. Bring: your discharge paper work, insurance card, photo ID. NEW MEDICATIONS: START Hydralazine 10mg THREE times per day with each meal - THIS IS FOR YOUR BLOOD PRESSURE CONTROL START Losartan 50mg ONCE PER day in the morning - THIS IS FOR YOUR BLOOD PRESSURE CONTROL START Amlodopine 5 mg ONCE PER day in the morning. - THIS IS FOR YOUR BLOOD PRESSURE CONTROL START Phoslo (Calcium Acetate) three times per day with meals - this medication helps to prevent high levels of blood phosphate in patients on dialysis. Thank you for allowing us to care for you. YOUR COVID 19 IS NEGATIVE OF 11/23/2019 Referrals: Avtar Lester MD [Staff Physician] - Heri Rand MD [Staff Physician] - 1 Week Disposition: HOME - Home Medications Comprehensive Discharge Medication List: Ambulatory Orders Losartan Potassium 50 mg PO DAILY #30 tablet 08/05/17 Amlodipine Besylate [Norvasc -] 5 mg PO DAILY #90 tablet 11/25/19 Calcium Acetate [Phoslo -] 667 mg PO TIDCM #120 capsule 11/25/19 Losartan Potassium [Cozaar -] 50 mg PO DAILY #90 tablet 11/25/19 hydrALAZINE HCL [Apresoline -] 10 mg PO TID #120 tablet 11/25/19 Problem List - Problems (1) Hypertensive emergency Assessment/Plan: secondary to missed dialysis. had dialysis today. has dialysis scheduled at his home center tomorrow at 5a.m. bp improved 140/100, will follow up with new PCP on ThursdayNovember 27, appt made for follow up BP check on hydralzine 10mg tid, amlodopine 5mg daily, losartan 50mg daily. Code(s): I16.1 - HYPERTENSIVE EMERGENCY (2) Renal failure Assessment/Plan: patient missed his last scheduled dialysis secondary to n/v malaise. presents with creatinine of 14.5 for dialysis today via right subclavian dialysis cath. renal following patient follows at [facility] for dialysis he is not willing to undergo an AV fistula at this time, but may consider in future Code(s): N19 - UNSPECIFIED KIDNEY FAILURE (3) ESRD (end stage renal disease) Assessment/Plan: had dialysis today, will have another session tomorrow at his home center at [facility] Code(s): N18.6 - END STAGE RENAL DISEASE (4) Hypertension Assessment/Plan: improved. all meds called in. Code(s): I10 - ESSENTIAL (PRIMARY) HYPERTENSION (5) Acute hepatitis B Assessment/Plan: hep panel negative Code(s): B16.9 - ACUTE HEPATITIS B W/O DELTA-AGENT AND WITHOUT HEPATIC COMA (6) Syphilis Assessment/Plan: treated with penicillin 2017 Code(s): A53.9 - SYPHILIS, UNSPECIFIED (7) Sinus tachycardia Assessment/Plan: echo ef 60-65%, trace tr Code(s): R00.0 - TACHYCARDIA, UNSPECIFIED (8) DVT prophylaxis Assessment/Plan: heparin tid Code(s): Z29.9 - ENCOUNTER FOR PROPHYLACTIC MEASURES, UNSPECIFIED (9) Nausea & vomiting Assessment/Plan: resolved. abd ct shows no acute pathology on renal diet Code(s): R11.2 - NAUSEA WITH VOMITING, UNSPECIFIED This patient is new to me today: No Emergency Visit: Yes ED Registration Date: 11/23/19 Care time: The patient presented to the Emergency Department on the above date and was hospitalized for further evaluation of their emergent condition. Critical Care patient: No - Discharge Referral Referred to [facility] Med P.C.: No
[2019-11-25] MEDS: ONDANSETRON 4 MG/2 ML VIAL IVPUSH PRN (17:30)
--- NOTE | 2019-11-25 18:06 | HOSP ---
Subjective - Review of Symptoms General: Yes: Other Physical Examination Vital Signs: Vital Signs Temperature 98.9 F 11/25/19 17:43 Pulse Rate 117 H 11/25/19 17:43 Respiratory Rate 18 11/25/19 17:43 Blood Pressure 145/43 L 11/25/19 17:43 O2 Sat by Pulse Oximetry (%) 98 11/25/19 12:00 Labs: CBC, BMP 11/25/19 07:08 11/25/19 07:08 Hospitalist Encounter Assessment: patient set for discharge home once he completed dialysis, his heart rate became elevated to 160s EKG stat shows ST 110s, t wave abnormality will repeat CMP, troponins x 3 and continue to monitor on tele cardiology follow up in a.m. bp 150/90, heart rate 117, 18 resp, afebrile on exam
[2019-11-25 21:37] LABS: BILIRUBIN,TOTAL 0.6 mg/dL (0.2-1); CALCIUM 9.6 mg/dL (8.5-10.1); MAGNESIUM 2.3 mg/dL (1.8-2.4); POTASSIUM 3.6 mmol/L (3.5-5.1); TOT PROT 8.3 g/dl (6.4-8.2)
[2019-11-25 22:35] LABS: BLOOD UREA NITROGEN 29.1 mg/dL (7-18)
[2019-11-25 22:37] LABS: CREATININE 8.3 mg/dL (0.55-1.3)
--- NOTE | 2019-11-26 06:30 | PN ---
Progress Note (short form) - Note Progress Note: Chief Complaint: Events noted, notes reviewed, resting in bed, denies any chest discomfort or dyspnea, resting tachycardia is persistent History of Present Illness: Seen and examined on telemetry. Events noted, notes reviewed, resting in bed, d enies any chest discomfort or dyspnea, resting tachycardia is persistent Medications: Current Medications Generic Name Dose Route Start Last Admin Trade Name Freq PRN Reason Stop Dose Admin Amlodipine Besylate 5 mg 11/24/19 10:00 11/25/19 09:12 Norvasc - PO Not Given DAILY [facility] Calcium Acetate 667 mg 11/25/19 12:00 11/25/19 17:31 Phoslo - PO 667 mg TIDCM [facility] Administration Heparin Sodium (Porcine) 5,000 unit 11/24/19 06:00 11/25/19 23:03 Heparin - SQ 5,000 unit TID [facility]IE Administration Hydralazine HCl 10 mg 11/24/19 14:00 11/25/19 23:03 Apresoline - PO 10 mg TID [facility] Administration Sodium Chloride 250 mls @ 3,000 mls/hr 11/25/19 15:03 Normal Saline - IV 11/26/19 15:03 PRN PRN Hypotension during Dialysis Losartan Potassium 50 mg 11/24/19 13:00 11/25/19 09:12 Cozaar - PO Not Given DAILY [facility] Ondansetron HCl 4 mg 11/24/19 00:44 11/25/19 17:30 Zofran Injection IVPUSH 4 mg Q6H PRN Administration NAUSEA Zinc Acetate/Diphenhydramine 1 applic 11/25/19 10:00 11/25/19 11:47 Benadryl 2% Cream TP 1 applic DAILY [facility] Administration Review of Systems Constitutional: denies Chills or Fever Respiratory: denies: Dyspnea Cardiovascular: As noted above Gastrointestinal: denies Nausea, Vomiting, Diarrhea or Constipation or Abdominal Discomfort Genitourinary: No Symptoms Reported Musculoskeletal: No Symptoms Reported Vital Signs: Last Vital Signs Temp Pulse Resp BP Pulse Ox 98.6 F 105 H 18 148/60 96 11/26/19 01:00 11/26/19 01:00 11/26/19 01:00 11/26/19 01:00 11/25/19 21:00 Intake & Output 11/23/19 11/24/19 11/25/1911/25/20 23:59 23:59 23:59 23:59 Intake Total 1200 Output Total 1800 Balance -600 Weight 125 lb 125 lb 125 lb Neck: Supple Negative JVD Respiratory: Clear to auscultation and percussion Cardiovascular: S1 S2 Regular Rate Rhythm Gastrointestinal: Soft Benign Normal Bowel Sounds Ext: Negative Edema Bilaterally Labs: CBC, BMP 11/25/19 07:08 11/25/19 20:30 Hepatic Panel Total Bilirubin 0.6 mg/dL (0.2-1) 11/25/19 20:30 AST 8 U/L (15-37) L 11/25/19 20:30 ALT 13 U/L (13-61) 11/25/19 20:30 Alkaline Phosphatase 108 U/L (45-117) 11/25/19 20:30 Albumin 4.0 g/dl (3.4-5.0) 11/25/19 20:30 INR, PTT INR 0.99 (0.83-1.09) 11/23/19 18:30 Assessment/Plan ASSESSMENT: 1. [place]-vascular hypertension, labile blood pressure 2. Probable reactionay sinus tachycardia 3. ESRD on hemodialysis 4. History of Hepatitis- B PLAN: 1. Hemo-dialysis as per renal service 2. Continue Cozaar 3. Continue Norvasc 4. Continue Hydralazine 5. Recommend the addition of B-Blockers unless it is absolutely contraindicated Nguyen George MD
[2019-11-26] MEDS: hydrALAZINE HCL 10 MG TABLET PO SCH (06:40)
[2019-11-26] MEDS: HEPARIN NA (PORCINE) 5,000 UNITS/ML 1ML VIAL SQ SCH (06:40)
[2019-11-26 06:59] LABS: BASO % 0.7 % (0-2.0); EOS % 4.5 % (0-4.5); HEMATOCRIT 37.7 % (35.4-49); HEMOGLOBIN 12.6 GM/dL (11.7-16.9); LYMPH % 34.4 % (8-40); MCH 28.7 pg (25.7-33.7); MCHC 33.4 g/dl (32.0-35.9); MEAN CELL VOLUME 85.8 fl (80-96); MEAN PLT VOLUME 8.2 fl (7.5-11.1); MONO % 8.7 % (3.8-10.2); NEUT % 51.7 % (42.8-82.8); PLATELET COUNT 194 K/MM3 (134-434); RDW 13.2 % (11.9-15.9); WHITE BLOOD COUNT 8.6 K/mm3 (4.0-10.0)
[2019-11-26 07:28] LABS: ALBUMIN 3.9 g/dl (3.4-5.0); ALK PHOS 107 U/L (45-117); ANION GAP 13 MMOL/L (8-16); BILIRUBIN,TOTAL 0.5 mg/dL (0.2-1); BLOOD UREA NITROGEN 32.5 mg/dL (7-18); CALCIUM 9.5 mg/dL (8.5-10.1); CHLORIDE 97 mmol/L (98-107); CO2 27 mmol/L (21-32); GLUCOSE,RANDOM 90 mg/dL (74-106); MAGNESIUM 2.3 mg/dL (1.8-2.4); POTASSIUM 3.9 mmol/L (3.5-5.1); SGOT/AST 11 U/L (15-37); SGPT/ALT 14 U/L (13-61); SODIUM 137 mmol/L (136-145); TOT PROT 8.2 g/dl (6.4-8.2)
[2019-11-26 07:42] LABS: CREATININE 9.3 mg/dL (0.55-1.3)
[2019-11-26] MEDS ORDERED: PT OWN MED DRAWER 7, Y5N ONE (08:08)
[2019-11-26] MEDS: CALCIUM ACETATE 667 MG CAPSULE (FP) PO SCH (08:13)
[2019-11-26] MEDS: LOSARTAN POTASSIUM 50 MG TABLET (FP) PO SCH (09:04)
[2019-11-26] MEDS: amLODIPine BESYLATE 5 MG TABLET (FP) PO SCH (09:05)
[2019-11-26] MEDS ORDERED: metoPROLOL SUCCINATE 25 MG TAB.SR.24H (FP) PO SCH (09:45)
[2019-11-26 10:16] VITALS: BP 155/100; PULSE 106; TEMP 98.1
--- NOTE | 2019-11-28 09:28 | EKG ---
Test Reason : Blood Pressure : / mmHG Vent. Rate : 110 BPM Atrial Rate : 110 BPM P-R Int : 114 ms QRS Dur : 068 ms QT Int : 350 ms P-R-T Axes : 064 073 -15 degrees QTc Int : 473 ms SINUS TACHYCARDIA MODERATE VOLTAGE CRITERIA FOR LVH, MAY BE NORMAL VARIANT T WAVE ABNORMALITY, CONSIDER INFERIOR ISCHEMIA ABNORMAL ECG WHEN COMPARED WITH ECG OF 24-NOV-2019 08:42, QUESTIONABLE CHANGE IN QRS AXIS T WAVE INVERSION NOW EVIDENT IN INFERIOR LEADS NONSPECIFIC T WAVE ABNORMALITY NOW EVIDENT IN ANTERIOR LEADS NONSPECIFIC T WAVE ABNORMALITY, IMPROVED IN LATERAL LEADS Confirmed by Vinita Lopez ([id number]) on 11/28/2019 9:28:13 AM Referred By: Confirmed By:Vinita Lopez
== END 2019-11-26 10:25 | disposition home or self-care (01) | DRG 199 ==
LOC: JER 17:12 → JERBED 22:13 → J4W 11-24 20:27
PROVIDERS: ADMIT Internal Medicine; ATTEND Internal Medicine
PROC: 5A1D70Z Performance of Urinary Filtration, Intermittent, Less than 6 Hours Per Day (ICD-10-PCS; principal; 2019-11-24)
DX: I15.0 Renovascular hypertension (principal); N18.6 End stage renal disease; I13.11 Hypertensive heart and chronic kidney disease without heart failure, with stage 5 chronic kidney disease, or end stage renal disease; B19.10 Unspecified viral hepatitis B without hepatic coma; R00.0 Tachycardia, unspecified; Z99.2 Dependence on renal dialysis; D63.1 Anemia in chronic kidney disease; I16.0 Hypertensive urgency; A53.9 Syphilis, unspecified; R11.2 Nausea with vomiting, unspecified; R19.7 Diarrhea, unspecified; R63.0 Anorexia; Z91.15 Patient's noncompliance with renal dialysis; Z68.20 Body mass index [BMI] 20.0-20.9, adult
CPT/HCPCS: 36415; 71045-TC-FY; 74176-TC; 80048; 80053; 80061; 80074; 81003; 82550; 83540; 83550; 83690; 83721; 83735; 84100; 84443; 84484; 85025; 85027; 85610; 87040; 87086; 93005; 93010; 93306-TC; 99285-25; J0131; J1644; U0003

== ENCOUNTER 2020-03-25 09:14 | Inpatient (IN) | payer OTHER ==
[2020-03-25] MEDS ORDERED: ONDANSETRON 4 MG/2 ML VIAL IVPUSH ONE (09:44)
[2020-03-25] MEDS ORDERED: FAMOTIDINE 20 MG/50 ML IVPB 20 MG/50 ML MG IVPB ONE ×2 (09:44→09:49)
[2020-03-25] MEDS ORDERED: ACETAMINOPHEN 1000 MG/100 ML VIAL (NON FORMULARY) IVPB ONE (09:46)
[2020-03-25] MEDS ORDERED: ACETAMINOPHEN INJECTION 100 ML IVPB ONE (09:48)
[2020-03-25 10:20] LABS: BASO % 0.8 % (0-2.0); HEMOGLOBIN 7.5 GM/dL (11.7-16.9); LYMPH % 10.7 % (8-40); MCH 29.4 pg (25.7-33.7); MCHC 34.2 g/dl (32.0-35.9); MEAN PLT VOLUME 7.4 fl (7.5-11.1); MONO % 4.8 % (3.8-10.2); NEUT % 81.7 % (42.8-82.8); PLATELET COUNT 54 K/MM3 (134-434); RBC 2.56 M/mm3 (4.00-5.60); RDW 13.9 % (11.9-15.9); WHITE BLOOD COUNT 11.2 K/mm3 (4.0-10.0)
[2020-03-25 10:36] LABS: POTASSIUM 5.9 mmol/L (3.5-5.1)
[2020-03-25 10:39] LABS: ALBUMIN 3.8 g/dl (3.4-5.0); BLOOD UREA NITROGEN 84.6 mg/dL (7-18); CALCIUM 8.6 mg/dL (8.5-10.1)
[2020-03-25 10:44] LABS: BILIRUBIN,TOTAL 0.4 mg/dL (0.2-1); TOT PROT 6.9 g/dl (6.4-8.2)
[2020-03-25] MEDS ORDERED: CALCIUM GLUCONATE 10% - 1,000 MG/10 ML VIAL IVPB ONE (10:56)
[2020-03-25] MEDS ORDERED: INSULIN REGULAR HUMAN 100 UNITS/ML *VIAL SQ ONE (10:57)
[2020-03-25] MEDS ORDERED: DEXTROSE 50%-WATER - 25 GM/50 ML VIAL IVPUSH ONE ×2 (10:57→12:32)
[2020-03-25] MEDS ORDERED: CALCIUM GLUCONATE 10% - 1,000 MG/10 ML VIAL IVPUSH ONE (10:58)
[2020-03-25 10:59] LABS: N-TERMINAL BNP 43534.1 pg/ml (5-125)
[2020-03-25 11:00] LABS: CREATININE 20.5 mg/dL (0.55-1.3)
[2020-03-25] MEDS ORDERED: CALCIUM GLUCONATE 10% - 1,000 MG/10 ML VIAL ONE (11:03)
[2020-03-25] MEDS ORDERED: DEXTROSE 50%-WATER 25 GM/50 ML DISP.SYRIN ONE ×2 (11:03→12:19)
[2020-03-25] MEDS ORDERED: INSULIN REGULAR HUMAN 100 UNITS/ML *VIAL IVPUSH ONE (11:04)
[2020-03-25] MEDS ORDERED: ALBUTEROL SO4 0.083% IH SOL 2.5 MG/3 ML VIAL.NEB. NEB ONE (11:05)
[2020-03-25] MEDS ORDERED: INSULIN REGULAR HUMAN 100 UNITS/ML *VIAL ONE (11:05)
[2020-03-25 11:24] LABS: EPI CELLS 5 /uL (0-25.1); HYALINE CASTS 0 /uL (0-3.1); URINE APPEARANCE CLEAR; URINE BACTERIA 9 /uL (0-1359); URINE BILIRUBIN NEGATIVE (NEGATIVE); URINE COLOR YELLOW; URINE GLUCOSE (UA) TRACE (NEGATIVE); URINE KETONE NEGATIVE (NEGATIVE); URINE LEUK ESTERASE NEGATIVE (NEGATIVE); URINE NITRITE NEGATIVE (NEGATIVE); URINE PROTEIN 4+ (NEGATIVE); URINE RBC 9 /uL (0-23.9); URINE UROBILINOGEN 0.2 mg/dL (0.2-1.0); URINE WBC 5 /uL (0-25.8)
[2020-03-25] MEDS: SODIUM ZIRCONIUM CYCLOSILICATE (LOKELMA) 5 GM PACKET PO SCH (11:36)
[2020-03-25] MEDS ORDERED: SODIUM CHLORIDE 0.9% 1000 ML INFUS.BAG IV ONE ×2 (12:07→14:20)
[2020-03-25] MEDS ORDERED: hydrALAZINE HCL 20 MG/ML VIAL IVPUSH ONE (12:07)
[2020-03-25] MEDS ORDERED: hydrALAZINE HCL 20 MG/ML VIAL ONE (12:52)
[2020-03-25] MEDS ORDERED: ACETAMINOPHEN 1000 MG/100 ML VIAL (NON FORMULARY) IVPB PRN (14:47)
[2020-03-25] MEDS ORDERED: ONDANSETRON 4 MG/2 ML VIAL IVPUSH PRN (14:53)
[2020-03-25 15:44] LABS: HEMATOCRIT 19.4 % (35.4-49); MCH 29.1 pg (25.7-33.7); MCHC 33.7 g/dl (32.0-35.9); MEAN CELL VOLUME 86.4 fl (80-96); MEAN PLT VOLUME 8.3 fl (7.5-11.1); PLATELET COUNT 57 K/MM3 (134-434); RBC 2.25 M/mm3 (4.00-5.60); RDW 14.4 % (11.9-15.9); WHITE BLOOD COUNT 10.9 K/mm3 (4.0-10.0)
[2020-03-25 16:07] LABS: HEMOGLOBIN 6.5 GM/dL (11.7-16.9)
[2020-03-25 19:15] LABS: HEMATOCRIT 19.6 % (35.4-49); MCHC 33.7 g/dl (32.0-35.9); MEAN CELL VOLUME 86.1 fl (80-96); RBC 2.28 M/mm3 (4.00-5.60); RDW 14.4 % (11.9-15.9); WHITE BLOOD COUNT 8.7 K/mm3 (4.0-10.0)
[2020-03-25 19:21] LABS: HEMOGLOBIN 6.6 GM/dL (11.7-16.9)
[2020-03-25 19:26] LABS: POTASSIUM 5.6 mmol/L (3.5-5.1)
[2020-03-25 19:28] LABS: BLOOD UREA NITROGEN 89.6 mg/dL (7-18); CALCIUM 8.6 mg/dL (8.5-10.1)
[2020-03-25 19:51] LABS: CREATININE 20.2 mg/dL (0.55-1.3)
[2020-03-25 19:57] LABS: MEAN PLT VOLUME 7.9 fl (7.5-11.1); PLATELET COUNT 51 K/MM3 (134-434)
[2020-03-25] MEDS: hydrALAZINE HCL 10 MG TABLET PO SCH (21:22)
[2020-03-26] MEDS: hydrALAZINE HCL 10 MG TABLET PO SCH (05:38)
[2020-03-26 07:25] LABS: POTASSIUM 5.6 mmol/L (3.5-5.1)
[2020-03-26 07:28] LABS: ALBUMIN 3.3 g/dl (3.4-5.0); BLOOD UREA NITROGEN 94.8 mg/dL (7-18); CALCIUM 8.2 mg/dL (8.5-10.1); MAGNESIUM 2.8 mg/dL (1.8-2.4)
[2020-03-26 07:31] LABS: PHOSPHOROUS 7.5 mg/dL (2.5-4.9)
[2020-03-26 07:33] LABS: BILIRUBIN,TOTAL 0.5 mg/dL (0.2-1); TOT PROT 6.2 g/dl (6.4-8.2)
[2020-03-26 07:36] LABS: IRON SERUM 133 ug/dL (50-175); TOTAL IRON BINDING CAPACITY 217 ug/dL (250-450)
[2020-03-26 07:45] LABS: CREATININE 20.7 mg/dL (0.55-1.3)
[2020-03-26] MEDS ORDERED: PT OWN MED DRAWER 7, Y5N ONE (08:56)
[2020-03-26] MEDS ORDERED: hydrALAZINE HCL 25 MG TABLET (FP) PO SCH (09:00)
[2020-03-26] MEDS ORDERED: PNEUMOC 13-VAL CONJ-DIP CRM/PF 0.5 ML DISP.SYRIN IM ONE (09:00)
[2020-03-26] MEDS: SODIUM ZIRCONIUM CYCLOSILICATE (LOKELMA) 5 GM PACKET PO SCH (09:06)
[2020-03-26] MEDS: NIFEdipine E.R 60 MG TABLET PO SCH (09:06)
[2020-03-26 09:11] LABS: BASO % 0.7 % (0-2.0); EOS % 2.2 % (0-4.5); HEMATOCRIT 20.6 % (35.4-49); LYMPH % 16.8 % (8-40); MCHC 33.4 g/dl (32.0-35.9); MEAN CELL VOLUME 86.9 fl (80-96); MEAN PLT VOLUME 8.3 fl (7.5-11.1); MONO % 6.8 % (3.8-10.2); NEUT % 73.5 % (42.8-82.8); PLATELET COUNT 60 K/MM3 (134-434); RBC 2.38 M/mm3 (4.00-5.60); RDW 13.9 % (11.9-15.9); WHITE BLOOD COUNT 8.1 K/mm3 (4.0-10.0)
[2020-03-26 09:33] LABS: HEMOGLOBIN 6.9 GM/dL (11.7-16.9)
[2020-03-26] MEDS ORDERED: SODIUM CHLORIDE 0.9% 500 ML INFUS.BAG IV ONE (09:53)
[2020-03-26] MEDS ORDERED: SODIUM ZIRCONIUM CYCLOSILICATE (LOKELMA) 5 GM PACKET PO SCH ×2 (10:00)
[2020-03-26] MEDS ORDERED: LABETALOL HCL 200 MG TABLET (FP) PO SCH (10:00)
[2020-03-26] MEDS ORDERED: amLODIPine BESYLATE 5 MG TABLET (FP) PO SCH (10:00)
[2020-03-26] MEDS ORDERED: metoPROLOL SUCCINATE 25 MG TAB.SR.24H (FP) PO SCH (10:00)
[2020-03-26] MEDS ORDERED: SODIUM CHLORIDE 1,000 ML IV ONE (10:15)
[2020-03-26] MEDS ORDERED: SODIUM CHLORIDE 250 ML IV PRN (16:00)
[2020-03-26] MEDS: LACTATED RINGERS SOLUTION 1,000 ML/1,000 ML INFUS.BAG IV SCH (17:36)
[2020-03-26] MEDS: LABETALOL HCL 200 MG TABLET (FP) PO SCH (21:21)
[2020-03-27] MEDS ORDERED: FUROSEMIDE 40 MG/4 ML INJECTABLE VIAL IVPUSH ONE (00:19)
[2020-03-27] MEDS: LACTATED RINGERS SOLUTION 1,000 ML/1,000 ML INFUS.BAG IV SCH (03:50)
[2020-03-27] MEDS ORDERED: LACTATED RINGERS SOLUTION 1,000 ML/1,000 ML INFUS.BAG IV SCH (04:02)
[2020-03-27 07:13] LABS: MCH 28.2 pg (25.7-33.7); MCHC 34.4 g/dl (32.0-35.9); MEAN CELL VOLUME 81.8 fl (80-96); MEAN PLT VOLUME 8.1 fl (7.5-11.1); PLATELET COUNT 64 K/MM3 (134-434); RBC 2.41 M/mm3 (4.00-5.60); RDW 15.2 % (11.9-15.9); WHITE BLOOD COUNT 6.4 K/mm3 (4.0-10.0)
[2020-03-27 07:18] LABS: HEMATOCRIT 19.7 % (35.4-49); HEMOGLOBIN 6.8 GM/dL (11.7-16.9)
[2020-03-27 07:22] LABS: POTASSIUM 3.4 mmol/L (3.5-5.1)
[2020-03-27 07:28] LABS: MAGNESIUM 1.8 mg/dL (1.8-2.4)
[2020-03-27 07:31] LABS: PHOSPHOROUS 5.6 mg/dL (2.5-4.9)
[2020-03-27 07:34] LABS: CREATININE 9.5 mg/dL (0.55-1.3)
[2020-03-27] MEDS: NIFEdipine E.R 60 MG TABLET PO SCH (09:09)
[2020-03-27] MEDS: LABETALOL HCL 200 MG TABLET (FP) PO SCH ×2 (09:09→22:14)
[2020-03-28 06:57] LABS: HEMATOCRIT 23.2 % (35.4-49); HEMOGLOBIN 7.9 GM/dL (11.7-16.9); MCH 28.3 pg (25.7-33.7); MCHC 34.2 g/dl (32.0-35.9); MEAN CELL VOLUME 82.8 fl (80-96); MEAN PLT VOLUME 7.9 fl (7.5-11.1); PLATELET COUNT 76 K/MM3 (134-434); RBC 2.81 M/mm3 (4.00-5.60); RDW 14.8 % (11.9-15.9); WHITE BLOOD COUNT 7.4 K/mm3 (4.0-10.0)
[2020-03-28 07:03] LABS: INR 0.96 (0.83-1.09); PROTHROMBIN TIME (PATIENT) 11.6 SEC (9.7-13.0)
[2020-03-28 07:05] LABS: ACTIVATED PTT 28.1 SECONDS (25.2-36.5)
[2020-03-28 07:35] LABS: POTASSIUM 3.8 mmol/L (3.5-5.1)
[2020-03-28 07:41] LABS: ALBUMIN 2.8 g/dl (3.4-5.0); CALCIUM 8.1 mg/dL (8.5-10.1)
[2020-03-28 07:45] LABS: PHOSPHOROUS 7.4 mg/dL (2.5-4.9); TOT PROT 5.4 g/dl (6.4-8.2)
[2020-03-28 07:48] LABS: BILIRUBIN,TOTAL 0.8 mg/dL (0.2-1)
[2020-03-28 07:59] LABS: CREATININE 11.9 mg/dL (0.55-1.3)
[2020-03-28] MEDS: LABETALOL HCL 200 MG TABLET (FP) PO SCH (09:08)
[2020-03-28] MEDS: NIFEdipine E.R 60 MG TABLET PO SCH (09:08)
[2020-03-28] MEDS ORDERED: LABETALOL HCL 200 MG TABLET (FP) PO SCH (10:35)
[2020-03-28] MEDS ORDERED: SODIUM CHLORIDE 500 ML IV STA (11:44)
[2020-03-28] MEDS ORDERED: SODIUM CHLORIDE 250 ML IV PRN (16:35)
[2020-03-28] MEDS ORDERED: EPOETIN ALFA 20,000 UNIT/1 ML VIAL IVPUSH ONE (16:45)
[2020-03-29 07:17] LABS: INR 0.96 (0.83-1.09); PROTHROMBIN TIME (PATIENT) 11.6 SEC (9.7-13.0)
[2020-03-29 07:18] LABS: ACTIVATED PTT 28.1 SECONDS (25.2-36.5)
[2020-03-29 07:24] LABS: POTASSIUM 3.7 mmol/L (3.5-5.1)
[2020-03-29 07:41] LABS: HEMATOCRIT 25.8 % (35.4-49); HEMOGLOBIN 8.6 GM/dL (11.7-16.9); MCH 27.8 pg (25.7-33.7); MCHC 33.2 g/dl (32.0-35.9); MEAN CELL VOLUME 83.6 fl (80-96); MEAN PLT VOLUME 7.9 fl (7.5-11.1); PLATELET COUNT 94 K/MM3 (134-434); RBC 3.09 M/mm3 (4.00-5.60); RDW 14.6 % (11.9-15.9); WHITE BLOOD COUNT 8.1 K/mm3 (4.0-10.0)
[2020-03-29 07:43] LABS: CALCIUM 8.8 mg/dL (8.5-10.1)
[2020-03-29 07:45] LABS: BLOOD UREA NITROGEN 12.8 mg/dL (7-18)
[2020-03-29 07:46] LABS: MAGNESIUM 1.9 mg/dL (1.8-2.4)
[2020-03-29 07:48] LABS: CREATININE 6.8 mg/dL (0.55-1.3)
[2020-03-29 07:49] LABS: BILIRUBIN,TOTAL 0.8 mg/dL (0.2-1); PHOSPHOROUS 4.6 mg/dL (2.5-4.9); TOT PROT 5.7 g/dl (6.4-8.2)
[2020-03-29] MEDS ORDERED: NIFEdipine E.R. 30 MG TABLET PO SCH (10:00)
[2020-03-29] MEDS ORDERED: LOSARTAN POTASSIUM 25 MG TABLET PO SCH (10:00)
[2020-03-29] MEDS ORDERED: SODIUM CHLORIDE 250 ML IV PRN (13:01)
[2020-03-29] MEDS ORDERED: NIFEdipine E.R. 30 MG TABLET PO ONE (13:45)
[2020-03-29 14:20] VITALS: BP 149/94; PULSE 106; TEMP 98.9
[2020-03-29] MEDS ORDERED: PNEUMOC 13-VAL CONJ-DIP CRM/PF 0.5 ML DISP.SYRIN IM ONE (16:26)
[2020-03-30] MEDS ORDERED: EPOETIN ALFA 20,000 UNIT/1 ML VIAL SQ ONE (08:00)
== END 2020-03-29 17:00 | disposition home or self-care (01) | DRG 282 ==
LOC: JER 09:14 → JERBED 11:52 → J4S 21:01
PROVIDERS: ADMIT Internal Medicine
PROC: 5A1D70Z Performance of Urinary Filtration, Intermittent, Less than 6 Hours Per Day (ICD-10-PCS; 2020-03-26)
PROC: 30233N1 Transfusion of Nonautologous Red Blood Cells into Peripheral Vein, Percutaneous Approach (ICD-10-PCS; principal; 2020-03-27)
PROC: 5A1D70Z Performance of Urinary Filtration, Intermittent, Less than 6 Hours Per Day (ICD-10-PCS; 2020-03-28)
DX: K85.90 Acute pancreatitis without necrosis or infection, unspecified (principal); E87.5 Hyperkalemia; F41.8 Other specified anxiety disorders; E78.5 Hyperlipidemia, unspecified; D63.1 Anemia in chronic kidney disease; I16.0 Hypertensive urgency; D69.6 Thrombocytopenia, unspecified; I13.2 Hypertensive heart and chronic kidney disease with heart failure and with stage 5 chronic kidney disease, or end stage renal disease; N18.6 End stage renal disease; R31.9 Hematuria, unspecified; R80.9 Proteinuria, unspecified; N05.9 Unspecified nephritic syndrome with unspecified morphologic changes; I50.9 Heart failure, unspecified; Z99.2 Dependence on renal dialysis; Z86.19 Personal history of other infectious and parasitic diseases
CPT/HCPCS: 36415; 36430; 36511; 71045-TC-FY; 74176-TC; 80048; 80053; 80061; 80074; 81003; 82550; 82962; 83010; 83540; 83550; 83615; 83690; 83721; 83735; 83880; 84100; 84484; 85025; 85027; 85032; 85379; 85384; 85397; 85610; 85730; 86850; 86880; 86900; 86901; 86922; 87040; 87086; 90670; 93005; 93010; 93970-TC; 99285-25; C9803; J0131; J0885; P9016; P9058; U0003